=== PATIENT | male | born 1965 | race Caucasian/White ===

== ENCOUNTER 2024-06-09 15:46 | Inpatient (IN) | payer OTHER, SELFPAY ==
[2024-06-09] VITALS (8 sets, daily range): BP systolic 118–141; BP diastolic 67–78; BMI 27.4
[2024-06-09 12:56] LABS: % Basophils 0.2 % (0-2); % Eosinophils 0.3 % (0-6); % Immature Granulocytes 0.5 % (0-0.5); % Lymphocytes 7.3 % (20.5-51.1); % Monocytes 14.1 % (1.7-9.3); % Neutrophils 77.6 % (42.2-75.2); Absolute Lymphocytes 0.5 10^3/uL (1.2-3.4); Absolute Monocytes 0.9 10^3/uL (0.1-0.6); Absolute Neutrophils 4.8 10^3/uL (1.4-6.5); Hematocrit 40.5 % (39.0-52.0); Hemoglobin 14.3 g/dL (13.0-18.0); Mean Corp Hgb Conc. 35.3 g/dL (33.0-37.0); Mean Corpuscular Hgb 35.2 pg (27.0-31.0); Mean Corpuscular Volume 99.8 fL (80.0-94.0); Mean Platelet Volume 10.2 fL (7.4-10.4); Nucleated Red Blood Cells % 0 % (-); Platelet Count 158 10^3/uL (130-400); Red Blood Cell Count 4.06 10^6/uL (4.70-6.10); Red Cell Dist. Width 13.1 % (11.5-14.5); White Blood Cell Count 6.2 10^3/uL (4.8-10.8)
[2024-06-09 13:13] LABS: ALT (SGPT) 78 U/L (0-50); AST (SGOT) 44 U/L (17-59); Albumin 3.2 g/dl (3.5-5.0); Alkaline Phosphatase 64 U/L (38-126); Blood Urea Nitrogen 21 mg/dl (9-20); Calcium 8.7 mg/dl (8.4-10.2); Carbon Dioxide 33 mmol/L (22-30); Chloride 105 mmol/L (98-107); Glucose 94 mg/dl (70-99); Potassium 2.9 mmol/L (3.5-5.1); Sodium 142 mmol/L (135-145); Total Bilirubin 0.7 mg/dl (0.2-1.3); eGFR > 60.00
[2024-06-09 13:21] LABS: NT-proBNP 225 pg/ml; Troponin I < 0.012 ng/ml
--- NOTE | 2024-06-09 13:54 | ED.GENMED ---
History of Present Illness
General
Chief Complaint: Breathing Problem
Time Seen by Provider: 06/09/24 12:28
History of Present Illness
History of Present Illness:
59-year-old male presents the emergency department for evaluation of shortness of breath and dyspnea on exertion. He has a history of pleural effusions, most recently has required chest tube placement 1 year ago at [facility]. Upon
reviewing the patient's my charts he was admitted for pneumonia with a large exudative pleural effusion on the right and underwent chest tube placement. He did undergo a left and right heart catheterization during that stay, was noted to have
minimal nonobstructing CAD as well as marginally elevated pulmonary wedge pressures. It was felt that his fluid buildup was not related to CHF however he is on Lasix at this time. Over the past 2 weeks he has had dry cough and increased dyspnea
particular with exertion. Denies chest pain or recent fevers. Had an outpatient x-ray 3 days ago showing pleural effusions and vascular congestion
Past History
Past History
ED Past Medical History: Asthma
Social History
Drug: None
Review of Systems
Review of Systems
Allergies reviewed?: Yes
All Other Systems: ROS reviewed and negative except as documented in HPI and ROS
Phy Exam
Physical Exam
Physical Exam:
GEN: Well appearing, NAD, WDWN
HEENT: Oral mucosa moist, no scleral icterus
Cardiac: Regular rate, Regular rhythm, no murmurs
Lung: No respiratory distress, no tachypnea, Rhonchi heard throughout all lung infante, no wheezes, good air exchange throughout
MSK: No gross deformity or injuries
Skin: Good color, no pallor or jaundice, no rashes
Neuro: AO x3, moves all extremities freely
Psych: Calm, cooperative
Scores
Heart Failure Risk
Heart Failure Risk Score: Not Applicable
Course
Orders/Labs/Results
Orders:
Orders
06/09/24 11:55
ECG [Electrocardiogram (*1)] Urgent
Reason for Study: Shortness of Breath
06/09/24 11:56
EKG- Treatment ONCE
06/09/24 12:42
CR Chest - 2 Views Urgent
Comment:
Reason For Exam: SOB
06/09/24 12:49
Complete Blood Count/With Diff Urgent
Comprehensive Metabolic Panel Urgent
Magnesium Urgent
Comment: ADD ON
NT-proBNP Urgent
Troponin I Urgent
06/09/24 13:53
Potassium Chloride [KCl] 40 meq PO NOW STA
06/09/24 14:05
Potassium Chloride [KCl] 20 meq 0.9% Sodium Chloride 150 ml [Nss] 150 ml IV NOW
06/09/24 14:16
Add On- LAB Urgent
Tests Added?: magnesium
06/09/24 15:04
STOOL [C difficile Antigen & Toxins] Routine
JASWANT Source: Feces/Stool
Specimen Description:
Stool Culture Routine
JASWANT Source: Feces/Stool
Specimen Description:
Stool For WBC Routine
JASWANT Source: Feces/Stool
Specimen Description:
06/09/24 15:06
HIV 4th Generation [HIV Combo] Routine
Urine Drug Abuse Screen Routine
Sputum Culture [Respiratory Culture/Gram Stain] Routine
JASWANT Source: Sputum
Specimen Description:
Abnormal Lab Results
06/09/24
12:49
RBC 4.06 L 10^6/uL
(4.70-6.10)
MCV 99.8 H fL
(80.0-94.0)
MCH 35.2 H pg
(27.0-31.0)
Absolute Lymphs (auto) 0.5 L 10^3/uL
(1.2-3.4)
Absolute Monos (auto) 0.9 H 10^3/uL
(0.1-0.6)
Neutrophils % 77.6 H %
(42.2-75.2)
Lymphocytes % 7.3 L %
(20.5-51.1)
Monocytes % 14.1 H %
(1.7-9.3)
Potassium 2.9 L mmol/L
(3.5-5.1)
Carbon Dioxide 33 H mmol/L
(22-30)
BUN 21 H mg/dl
(9-20)
Creatinine 0.6 L mg/dL
(0.7-1.3)
ALT 78 H U/L
(0-50)
Total Protein 6.0 L g/dl
(6.3-8.2)
Albumin 3.2 L g/dl
(3.5-5.0)
06/09/24 12:49
06/09/24 12:49
Vital Signs
Initial and Last Documented VS:
Initial Vital Signs
Temp Pulse Resp BP Pulse Ox
98.1 F 90 18 131/72 91
06/09/24 11:51 06/09/24 11:51 06/09/24 11:51 06/09/24 11:51 06/09/24 11:51
Last Documented Vital Signs
Temp Pulse Resp BP Pulse Ox
98.1 F 60 16 127/70 92
06/09/24 11:51 06/09/24 14:00 06/09/24 14:02 06/09/24 14:04 06/09/24 14:00
MDM/Problems Addressed
MDM/Problems Addressed:
Because of the patient's pulmonary edema and pleural effusions is not clear at this time. He did have reasonably normal cardiac workup within the past 12 months performed at [facility]. He has no infectious symptoms to warrant antibiotics at this
time. Feel be prudent to admit the patient for consideration of thoracentesis for symptomatic and diagnostic perspective
*Critical Care Note
Total Time (30-74mins, 75-104mins- exclusive of procedures): Not Applicable
ED Attending Note
-
Portions of this chart may have been created with voice recognition software.� Occasional wrong word or��sound alike� substitutions may have occurred due to the inherent limitations of voice recognition software.
Discharge Plan
Departure
Patient Disposition: Admit
Date of Disposition: 06/09/24
Time of Disposition: 13:56
Admit to: Telemetry
Presentation/result/management discussed w/ accepting MD/DO: Hospitalist
Discharge Problem:
Pleural effusion, Dyspnea on exertion
Prescriptions:
No Action
fluticasone propion-salmeterol 250-50 mcg/dose blister with device
1 inh INHALATION R BID
ascorbic acid (vitamin C) [Vitamin C] 1,000 mg Tablet
2 g PO DAILY
atorvastatin 20 mg Tablet
20 mg PO HS
calcium carbonate [Calcium 600] 600 mg calcium (1,500 mg) Tablet
600 mg PO DAILY
ferrous sulfate 325 mg (65 mg iron) Tablet
650 mg PO DAILY
bismuth subsalicylate [Pepto-Bismol] 262 mg/15 mL Suspension
524 mg PO DAILYPRN PRN (Reason: upset stomach)
ibuprofen 200 mg Tablet
800 mg PO DAILYPRN PRN (Reason: mild pain)
furosemide 20 mg Tablet
40 mg PO DAILY
albuterol sulfate 90 mcg/actuation HFA aerosol inhaler
1 puff INHALATION R DAILYPRN PRN (Reason: sob)
cholecalciferol (vitamin D3) 50 mcg (2,000 unit) Tablet
50 mcg PO DAILY
omega 3-axh-kmq-fish oil [Fish Oil] 1,200 (144-216) mg Capsule
1 cap PO DAILY
Referrals:
Carrie Mace DO [Family Provider] -
Interventions
Interventions:
*Risk Screen - Suicide Last Done: 06/09/24 11:51
*General Assessment Last Done: 06/09/24 11:51
*Neglect/Abuse Screening Last Done: 06/09/24 11:51
*ED- Fall Risk Assessment Last Done: 06/09/24 12:50
*ED COVID-19 Vaccine History Last Done: 06/09/24 12:50
ED- Cardiac Assessment Last Done: 06/09/24 12:50
ED- Pulmonary Assessment Last Done: 06/09/24 12:50
Discharge Date and Time
Print Language: SWAZI
[2024-06-09] MEDS: KCL 40 MEQ PO ×2 (14:01→21:16)
--- NOTE | 2024-06-09 14:12 | HPS.HSE ---
Addendum entered and electronically signed by JORGE A Walker 06/09/24 21:11:
Hypokalemia update at 1999
-Potassium 3.2
-Will give additional 40 mEq KCl p.o. now
-Follow BMP in a.m.
Original Note:
Family Physician
-
Family Physician: Carrie Mace
Chief Complaint
-
Shortness of breath, CEE, nonproductive cough
History of Present Illness
59-year-old male complaining of shortness of breath with dyspnea on exertion and dry cough.. He has history of recurrent pleural effusions with 1 year ago requiring chest tube placement at [facility]. ER reports he was admitted at
[facility] for pneumonia with large exudative pleural effusion on the right and underwent chest tube placement he had a left and right heart cath during his stay was noted to have minimal nonobstructing CAD as well as elevated pulmonary wedge
pressures. At that time it was felt not to be related to CHF however he is on current Lasix. Had outpatient chest x-ray 3 days ago showing pleural effusions and vascular congestion.
He denies fever, chills, headache, sore throat, chest pain, palpitations, abdominal pain, nausea, vomiting, diarrhea, urinary symptoms. He has past medical history of recurrent pleural effusions, recurrent pneumonia, chronic bronchitis, insomnia,
questionable CHF, HTN, HLD, prior crack cocaine smoker .
Medical History
Past Medical History
Past Medical History: Reports Other
Additional Past Medical History:
recurrent pleural effusions unclear�multiple thoracentesis starting 11/12/2018, 10/2019, 06/2023 [facility]
recurrent pneumonia
chronic bronchitis
insomnia
questionable CHF
HTN
HLD
prior crack cocaine smoker ., Sexual history partners that use IVDA last 04/08/2016 IVDA crystal meth hesitant to ask about homosexuality
Past Surgical History: Reports Other
Additional Past Surgical History:
multiple thoracentesis starting 11/12/2018, 10/2019, 06/2023 [facility] Gomez
Bronchoscopy October 2019 Amrit Heller
Cardiac cath June 2023 Amrit Gomez nonobstructive CAD
Social History
Tobacco: Non-smoker
Alcohol: None
Drug: Former User (Crack cocaine smoker )
Personal: Single
Living: Alone
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
Family History
Family History: Other (Mother history of HIV/AIDS/liver failure age 51, father AR age 72 disease, 3 brothers 1 with DM 2)
Allergies / Home Medications
Allergies reflects when Allergies were last updated in [employer].
Home Medications with original date entered in [employer]
Allergy/Medication List:
Allergies
Allergy/AdvReac Type Severity Reaction Status Date / Time
No Known Allergies Allergy Verified 06/09/24 11:51
Home Medications
albuterol sulfate 90 mcg/actuation aerosol inhaler 1 puff inhalation R DAILYPRN PRN sob 06/09/24
ascorbic acid (vitamin C) 1,000 mg tablet (Vitamin C) 2 g PO DAILY 06/09/24
atorvastatin 20 mg tablet 20 mg PO HS 06/09/24
bismuth subsalicylate 262 mg/15 mL oral suspension (Pepto-Bismol) 524 mg PO DAILYPRN PRN upset stomach 06/09/24
calcium carbonate (Calcium 600) 600 mg PO DAILY 06/09/24
cholecalciferol (vitamin D3) 50 mcg (2,000 unit) tablet 50 mcg PO DAILY 06/09/24
ferrous sulfate 325 mg (65 mg iron) tablet 650 mg PO DAILY 06/09/24
fluticasone 250 mcg-salmeterol 50 mcg/dose blistr powdr for inhalation 1 inh inhalation R BID 06/09/24
furosemide 20 mg tablet 40 mg PO DAILY 06/09/24
ibuprofen 200 mg tablet 800 mg PO DAILYPRN PRN mild pain 06/09/24
omega 3-rwm-eqc-fish oil 1,200 mg (144 mg-216 mg) capsule (Fish Oil) 1 cap PO DAILY 06/09/24
Review of Systems
-
History Source: Patient
A 12 point ROS was completed and negative except as noted: Yes
Constitutional: Denies Fever or Chills
EENT: Denies Sore Throat or Runny Nose
Respiratory: Reports Cough (Yellow in color) and Trouble Breathing (Dyspnea on exertion, wheezing, persistent cough)
Cardiac: Denies Chest Pain, Diaphoresis, Palpitations or Syncope
Abdomen/GI: Reports Diarrhea (Watery black 3-4 times a day since 05/31/2024); Denies Abdominal Pain, Nausea, Vomiting, Constipated, Bloody Stools or Black Stools
: Denies Dysuria, Frequency, Flank Pain, Incontinence, Difficulty Voiding, Urgency, Bleeding or Dark Urine
Musculoskeletal: Reports Edema (Trace bilateral lower legs); Denies Joint Pain
Skin: Denies Itching or Rash
Neurological: Denies Dizzy, Headache or Weakness
Endocrine: Reports No Symptoms
Hematologic/Lymphatic: Reports No Symptoms
Psych: Reports Calm
Physical Exam
Vital Signs
Vital Signs
Temp Pulse Resp BP Pulse Ox
98.1 F 60 16 127/70 92
06/09/24 11:51 06/09/24 14:00 06/09/24 14:02 06/09/24 14:04 06/09/24 14:00
Physical Exam
General: Comfortable and Conversant; No Pain, Fever or Chills
HEENT: NormoCephalic, Anicteric, PERRLA, [place] Conjunctivae and No Ptosis
Respiratory: Rhonchi (Bilateral rhonchi with diffuse expiratory wheezing)
Cardiac: S1/S2 and Regular Rhythm; No Murmur, Rub, Gallop or Peripheral Edema
Breast: Deferred by me
GI: Soft, Non Tender, Non Distended, Normal Bowel Sounds and No Hepatosplenomegaly
Rectal: Deferred by Provider
Genito-urinary: Deferred by me
Musculoskeletal: No Clubbing, No Cyanosis, Edema, Left Lower Extremity (Trace lower legs) and Edema, Right Lower Extremity (Trace lower legs); No Edema, Left Upper Extremity or Edema, Right Upper Extremity
Skin: Warm and Dry; No Rash
Neuro: AO x 3, No Motor Deficits, Nonfocal/grossly intact, Cranial Nerves Intact and No Sensory Deficits; No Slurred Speech, Facial Droop, Tremors or Sedated
Psych: Calm
Laboratory Results
-
06/09/24 12:49
06/09/24 12:49
Laboratory Results
Total Bilirubin 0.7 mg/dl (0.2-1.3) 06/09/24 12:49
AST 44 U/L (17-59) 06/09/24 12:49
ALT 78 U/L (0-50) H 06/09/24 12:49
Alkaline Phosphatase 64 U/L (38-126) 06/09/24 12:49
Troponin I < 0.012 ng/ml 06/09/24 12:49
Data Reviewed
-
Diagnostic Radiology: Report Reviewed by me
Lab Data: Labs Reviewed by me
Impression/Plan
-
Impression/plan:
Admit to telemetry
#Acute hypoxic respiratory insufficiency secondary to recurrent moderate right pleural effusion
Hx recurrent pleural effusions status post thoracentesis 11/12/2018, 11/07/2019, June 2023-unclear etiology
90-92% RA prior O2 sats 98% recent visits
-Oxygen as needed to maintain sat greater than 92%
-Consult IR for thoracentesis with fluid cytology
-Monitor I/O
#Hx former crack cocaine smoker
#History of multiple exposures to partners patient states female although hesitates when I ask about male partners last partner 2016 IVDA crystal meth
Patient consented to HIV testing given history of unclear recurrent right pleural effusion/pneumonia's? Mother history aids age 51
-Check sputum culture
-Check HIV, UDS
-Patient reports was tested for hep C June 2023 was negative
CXR:Interstitial pulmonary edema with moderate right and small left pleural effusions. Bibasilar opacities may reflect edema, atelectasis, and/or pneumonia.
#Acute on chronic bronchitis
-Frequent exacerbations last was March 26 treated with Z-Peter and steroids
-Patient follows with pulmonology Dr. Heller at [facility]
Hx bronchoscopy October 2019
-Will obtain old records from [facility] including cardiology notes and echo plus bronch report
-Decadron 4 mg IV every 12 hours
-DuoNebs scheduled and as needed
-Monitor pulse ox, 2 L nasal cannula as needed
#Acute hypokalemia secondary to diarrheal losses/diuretics
K2.9
40 KCl p.o. given in ER followed by Zev echeverria 40
-Repeat BMP 8 PM
#Watery diarrhea unclear etiology
-No reported abdominal pain but diarrhea did start with fever on 05/31/2024-9 days ago watery black in color however takes iron and Pepto-Bismol
No recent travel, raw foods, last antibiotic March 26, 2024
-Check C. difficile, stool WBC, stool culture
-Contact precautions until stool studies back
#Iron deficiency
Continue ferrous sulfate 660 mg p.o. daily
-Hgb 14.3, MCV 99.8
#Insomnia hx
#History of snoring/reported episodes stopping breathing per prior partner
-Encourage patient to get outpatient sleep study with his financial cost analyst for sleep apnea
#HLD
Check lipid profile
Continue fish oil, atorvastatin 20 mg at bedtime
DVT prophylaxis
Subcu Lovenox
Full code
[2024-06-09] MEDS: KCL 160 MEQ IV (14:13)
--- NOTE | 2024-06-09 14:24 | PHANOTE ---
06/09/24 med rec tech: patient says that he has used both of his inhalers multiple times today, 'too many to count'.
--- NOTE | 2024-06-09 15:56 | W.PN.UPDATE ---
Update Note
Progress Note Update
This is an addendum to H&P written by Pam Daly on 06/09/2024.
Patient seen and examined independently with TAIL RIPPER.
59-year-old male past medical history of chronic bronchitis, iron deficiency, right-sided thoracentesis in 2019 followed by bronchoscopy, exudative pleural effusion associated pneumonia status post chest tube 1 year ago at [facility],
nonobstructive CAD, MRSA cellulitis, asthma, presenting with shortness of breath with exertion and productive cough for 1 week.� Chest x-ray 3 days ago showed pleural effusion/vascular congestion.
2019 he had thoracentesis followed by bronchoscopy.�
1 year ago had pleural effusion associated with pneumonia status post chest tube.� He underwent left and right heart catheterization showing minimally obstructive CAD and marginally elevated pulmonary wedge pressures.� He was told that he does not
have heart congestive heart failure.
Treated for bronchitis March 26 with steroids and Z-Peter.� On 05/31 fever and bodyaches and watery black diarrhea.� Continues to have watery diarrhea 3 times a day.
History of smoking crack cocaine. No IV drug use. Had female partner that used IV drugs.
Bilteral ronchi on examination.�
Labs show potassium 2.9.� Cardiac BNP of 225.
Chest x-ray shows interstitial pulm edema with moderate right and small left pleural effusions.
Patient with dyspnea secondary to Acute bronchitis as well as moderate right pleural effusion suggestive of CHF exacerbation although BNP unremarkable.� DuoNebs, dexamethasone.� Check sputum culture.� IR consulted for thoracentesis and fluid
studies.� Pulmonary consulted.
Patient with ongoing diarrhea.� Check stool studies, C. difficile
Also hypokalemia secondary to Lasix/diarrhea.� Check magnesium.� Replete potassium.
Check UDS. Patient consents to checking HIV.�
Get records from [facility].�
[2024-06-09] MEDS: DECADRON 4 MG IV (16:07)
--- NOTE | 2024-06-09 16:30 | PTCARENOTE ---
pt admitted to 429- from the ED. pt ambulated from stretcher to bed independently. AAOX3. pt placed on tele monitor. NSR on telemetry heart rate in 70s. pulses palpable. +1 pitting edema in ankles noted. pt on room air, sat 94%. lung sounds with
mild inspiratory/expiratory wheezes, crackles in bases. CEE. breathing unlabored at rest. pt reports diarrhea- none since admission, pt made aware of need for stool and urine sample. pt oriented to room and unit. brother at bedside. pt updated on
plan of care.
[2024-06-09] MEDS: DUONEB INH (16:42)
[2024-06-09] MEDS: LOVENOX 40 MG SC (17:11)
--- NOTE | 2024-06-09 17:31 | CON.PUL ---
Consultation
Consultation Request
Date/Time Consultation Requested: 06/09/2024
Date/Time Consultation Performed: 06/09/2024
Requesting Provider: Pam Daly
Performing Provider: Olayinka [place]
Reason for Consultation: SHortness of breath
Medical History
-
Chief Complaint: Shortness of breath
History of Present Illness:
59-year-old male presents to the hospital for worsening shortness of breath with cough, episodic wheezing with clear to davis expectoration for about 1 week. No fever, chills or reported sick contacts.
Patient reports that he has history of recurrent pleural effusions, first diagnosed in 2018 which required drainage. He did well for a year and required anohter thoracentesis un 2019. Then he did well until 2023 when he was admitted to the hospital
and had right sided chest tube placed with hydro-pneumothorax. He has had Bronchoscopy also in the past but results not available for my review. Patient reports multiple episodes of respiratory infections, which he describes as bronchitis. Per
patient, he has had numerous ECHOs including RHC/LHC and was not felt to have CHF. He takes lasix at home for pedal edema however.
Work up in ED showed R>L pleural effusions and Pulmonary consult was requested for further input.
Past Medical History: Reports Other
recurrent pleural effusions unclear�multiple thoracentesis starting 11/12/2018, 10/2019, 06/2023 [facility]
recurrent pneumonia
chronic bronchitis
insomnia
questionable CHF
HTN
HLD, No h/o childhood asthma
prior crack cocaine smoker ., Sexual history partners that use IVDA last 04/08/2016 IVDA crystal meth hesitant to ask about homosexuality
Past Surgical History: Reports Other
Additional Past Surgical History:
multiple thoracentesis starting 11/12/2018, 10/2019, 06/2023 Am[facility] Gomez
Bronchoscopy October 2019 Amrit Heller
Cardiac cath June 2023 Amrit Gomez nonobstructive CAD
Social History
Tobacco: No reported h/o smoking cigarettes or cigars
Alcohol: None
Drug: Former User (Crack cocaine smoker [id number])
Personal: Single
Living: Alone
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
No Asbestosis exposure. No exposure to birds. Has had Cats/Dogs as pets
Allergies / Home Medications
Allergies
Allergy/AdvReac Type Severity Reaction Status Date / Time
No Known Allergies Allergy Verified 06/09/24 11:51
Home Medications
�Medication �Instructions �Recorded �Confirmed �Last Taken �Type
albuterol sulfate 90 mcg/actuation 1 puff inhalation R DAILYPRN PRN 06/09/24 06/09/24 06/09/24 History
aerosol inhaler sob
ascorbic acid (vitamin C) 1,000 mg 2 g PO DAILY 06/09/24 06/09/24 06/08/24 History
tablet (Vitamin C)
atorvastatin 20 mg tablet 20 mg PO HS 06/09/24 06/09/24 Unknown History
bismuth subsalicylate 262 mg/15 mL 524 mg PO DAILYPRN PRN upset 06/09/24 06/09/24 06/09/24 History
oral suspension (Pepto-Bismol) stomach
calcium carbonate (Calcium 600) 600 mg PO DAILY 06/09/24 06/09/24 06/08/24 History
cholecalciferol (vitamin D3) 50 50 mcg PO DAILY 06/09/24 06/09/24 06/08/24 History
mcg (2,000 unit) tablet
ferrous sulfate 325 mg (65 mg 650 mg PO DAILY 06/09/24 06/09/24 06/08/24 History
iron) tablet
fluticasone 250 mcg-salmeterol 50 1 inh inhalation R BID 06/09/24 06/09/24 06/09/24 History
mcg/dose blistr powdr for
inhalation
furosemide 20 mg tablet 40 mg PO DAILY 06/09/24 06/09/24 06/08/24 History
ibuprofen 200 mg tablet 800 mg PO DAILYPRN PRN mild pain 06/09/24 06/09/24 06/09/24 History
omega 3-lbf-lox-fish oil 1,200 mg 1 cap PO DAILY 06/09/24 06/09/24 06/08/24 History
(144 mg-216 mg) capsule (Fish Oil)
Review of Systems
-
Respiratory: Cough, Trouble Breathing and Other (Wheezing, no fever or chills )
Vitals / Labs / Diagnostic Testing
Vital Signs
Temp Pulse Resp BP Pulse Ox
98.1 F 60 15 139/71 94
06/09/24 16:54 06/09/24 16:54 06/09/24 16:54 06/09/24 16:54 06/09/24 16:54
Diagnostic Testing:
Physical Exam
-
HEENT: Normocephalic
Cardiovascular: S1/S2 and Regular Rhythm
Respiratory: Wheeze (Mild end expiratory wheezing bilaterally ) and Other (Decreased air entry on the right posterior base)
GI: Soft and Non Distended
Neurology: Awake and Alert
Skin: Warm
General: Comfortable
Assessment
-
#1. Acute exacerbation of COPD. Known h/o obstructive airway disease (PFT 2019, severe obstructive disease)
-Duoneb qid, Pulmicort BID. Hold Advair while on Nebz
-PRN Albuterol, continue IV Steroids
-Azithromycin for 3 days
#2. R>L Pleural effusions, chronic, recurrent (Exudative in the past). S/p (At least thrice) thoracentesis since 2018, with chest tube placement in 2023 with reported hydro-pneumothorax as per limited records I could access on patient's phone.
-Await records from [facility], and patient's Panel Saw Operator (He has had extensive work up including PFTs, Thoracentesis, Chest tube placement and Bronchoscopy)
-With h/o hydropneumothorax after drainage in the past, ?trapped lung with [id number]
-Unclear if lung ever fully expanded after thoracentesis vs chronically trapped lung after a remote infection
-IR guided thoracentesis already ordered, await fluid studies. At risk of [id number], ideally will need Manometry guided thoracentesis.
-CT chest to evaluate for any pleural thickening, loculations etc.
-Further recommendations after review of old records and work up done in the past
-Patient reports RHC/LHC in the past with numerous ECHOs in the past not suggestive of CHF. Await records
Other medical diagnoses:
-Diarrhea with hypokalemia
-HLD
-Prior h/o smoking cocaine ([id number])
Pulmonary service will follow
Time spent reviewing limited records and discussing with the patient: 65 min
[2024-06-09 18:10] LABS: Glucose 97 mg/dl (70-99); LDH 184 U/L (120-246)
[2024-06-09] MEDS: ZITHROMAX 500 MG PO (18:12)
[2024-06-09 18:50] LABS: HIV Combo Negative (Negative)
[2024-06-09] MEDS: DUONEB 3 ML INH (20:33)
[2024-06-09] MEDS: PULMICORT 0.5 MG INH (20:33)
[2024-06-09 20:34] LABS: Blood Urea Nitrogen 22 mg/dl (9-20); Calcium 8.6 mg/dl (8.4-10.2); Carbon Dioxide 29 mmol/L (22-30); Chloride 104 mmol/L (98-107); Estimated Creatinine Clearance > 125 ml/min; Glucose 203 mg/dl (70-99); Potassium 3.2 mmol/L (3.5-5.1); Sodium 139 mmol/L (135-145); eGFR > 60.00
[2024-06-09] MEDS: LIPITOR 20 MG PO (21:06)
[2024-06-10] VITALS (8 sets, daily range): BP systolic 60–139; BP diastolic 58–90; BMI 27.4
[2024-06-10] MEDS: DECADRON 4 MG IV ×2 (03:09→16:56)
[2024-06-10] MEDS: DUONEB 3 ML INH ×4 (08:17→20:31)
[2024-06-10] MEDS: PULMICORT 0.5 MG INH ×2 (08:17→20:31)
[2024-06-10 08:34] LABS: % Immature Granulocytes 0.4 % (0-0.5); % Monocytes 3.8 % (1.7-9.3); % Neutrophils 89.8 % (42.2-75.2); Absolute Lymphocytes 0.3 10^3/uL (1.2-3.4); Absolute Monocytes 0.2 10^3/uL (0.1-0.6); Absolute Neutrophils 4.5 10^3/uL (1.4-6.5); Hematocrit 41.4 % (39.0-52.0); Hemoglobin 14.7 g/dL (13.0-18.0); Mean Corp Hgb Conc. 35.5 g/dL (33.0-37.0); Mean Corpuscular Hgb 35.4 pg (27.0-31.0); Mean Corpuscular Volume 99.8 fL (80.0-94.0); Mean Platelet Volume 10.7 fL (7.4-10.4); Nucleated Red Blood Cells % 0 % (-); Platelet Count 185 10^3/uL (130-400); Red Blood Cell Count 4.15 10^6/uL (4.70-6.10)
[2024-06-10 09:14] LABS: ALT (SGPT) 63 U/L (0-50); AST (SGOT) 33 U/L (17-59); Albumin 3.5 g/dl (3.5-5.0); Alkaline Phosphatase 64 U/L (38-126); Blood Urea Nitrogen 21 mg/dl (9-20); Calcium 8.7 mg/dl (8.4-10.2); Carbon Dioxide 27 mmol/L (22-30); Estimated Creatinine Clearance > 125 ml/min; Glucose 126 mg/dl (70-99); HDL Cholesterol 40 mg/dl; LDL Cholesterol, Calculated 79 mg/dl; Potassium 3.5 mmol/L (3.5-5.1); Sodium 141 mmol/L (135-145); Total Bilirubin 0.9 mg/dl (0.2-1.3); Total Cholesterol 133 mg/dl (50-199); Total Protein 6.2 g/dl (6.3-8.2); Triglyceride 72 mg/dl (10-149); Very Low Density Lipoprotein 14 mg/dl (0-30); eGFR > 60.00
[2024-06-10] MEDS: VITAMIN D3 (cholecalciferol) 50 MCG PO (09:19)
[2024-06-10] MEDS: ZITHROMAX 500 MG PO (09:19)
[2024-06-10] MEDS: LASIX 40 MG PO (09:19)
[2024-06-10] MEDS: VITAMIN C 2000 MG PO (09:19)
[2024-06-10] MEDS: OSCAL CAL 500 500 MG PO (09:19)
[2024-06-10] MEDS: FEOSOL 650 MG PO (09:19)
[2024-06-10 09:20] LABS: Chloride 107 mmol/L (98-107)
--- NOTE | 2024-06-10 10:04 | CM ---
press manager reviewed patient's chart and met with patient and patient states he lives with his brother and sister in a 2 story home with no steps to enter, patient is independent with adl's and ambulation, no dme, Home with family when stable.
PCP: Carrie Mace
Pharmacy: [facility]
Plan; Home when stable.
--- NOTE | 2024-06-10 11:39 | W.PN.HOSP.TC ---
Today's Communication/Plan
-
Thoracentesis-pending
IV steroids
Pulm eval
Assessment / Plan
Assessment / Plan
#Acute hypoxic respiratory insufficiency secondary to recurrent Chronic moderate right pleural effusion exudative in past
Hx recurrent pleural effusions status post thoracentesis 11/12/2018, 11/07/2019, June 2023-unclear etiology
90-92% RA prior O2 sats 98% recent visits
-Oxygen as needed to maintain sat greater than 92%
-Consult IR for thoracentesis with fluid cytology
-Monitor I/O
-Pulm following.
#Hx former crack cocaine smoker
-Check sputum culture
-HIV checked on admission-negative.
-Patient reports was tested for hep C June 2023 was negative
#Acute on chronic bronchitis
-Frequent exacerbations last was March 26 treated with Z-Peter and steroids
-Patient follows with pulmonology Dr. Heller at [facility]
Hx bronchoscopy October 2019
-Will obtain old records from [facility] including cardiology notes and echo plus bronch report
-Decadron 4 mg IV every 12 hours
-DuoNebs scheduled and as needed
-Monitor pulse ox, 2 L nasal cannula as needed
#Acute hypokalemia secondary to diarrheal losses/diuretics
replete/monitor prn
#Watery diarrhea unclear etiology ?viral gastroenteritis
-No reported abdominal pain but diarrhea did start with fever on 05/31/2024-9 days ago watery black in color however takes iron and Pepto-Bismol
No recent travel, raw foods, last antibiotic March 26, 2024
-Check C. difficile, stool WBC, stool culture-DC stools studies if no further loose bm.
-Contact precautions until stool studies back
#Iron deficiency
Continue ferrous sulfate 660 mg p.o. daily
-Hgb 14.3, MCV 99.8
#Insomnia hx
#History of snoring/reported episodes stopping breathing per prior partner
-Encourage patient to get outpatient sleep study with his sap consultant for sleep apnea
#HLD
Continue fish oil, atorvastatin 20 mg at bedtime
DVT prophylaxis
Subcu Lovenox
Full code
Anticipated Discharge: > 48 hours
Subjective/Interval History
-
Date of Service: June 10, 2024
states remains with cough
Objective Data
-
Labs:
Laboratory Results
06/10/24
07:54
WBC 5.0
Hgb 14.7
Hct 41.4
Plt Count 185
Sodium 141
Potassium 3.5
Chloride 107
Carbon Dioxide 27
BUN 21 H
Creatinine 0.5 L
Glucose 126 H
Calcium 8.7
Total Bilirubin 0.9
AST 33
ALT 63 H
Alkaline Phosphatase 64
Vital Signs:
Vital Signs
Temp Pulse Resp BP Pulse Ox
98 F 81 17 129/73 93
06/10/24 11:32 06/10/24 11:32 06/10/24 11:32 06/10/24 11:32 06/10/24 11:32
I&O
06/09/24 06/10/24 06/11/24
06:59 06:59 06:59
Intake Total 480 / 480 180 / 180
Balance 480 / 480 180 / 180
Physical Exam
-
General: Well Developed and No Apparent Distress
HEENT: Normocephalic, Atraumatic and Moist Mucous Membranes
Respiratory: Crackles (R>>L) and Decreased Breath Sounds
Cardiac: Regular Rhythm and S1/S2; Negative Murmur, Rub or Gallop
GI: Soft, Nontender, Nondistended and Normal Bowel Sounds; Negative Organomegaly
Rectal: Deferred by Provider
Musculoskeletal: No Clubbing, No Cyanosis and No Edema
Skin: Negative Rash
Neuro: Nonfocal/Grossly Intact
--- NOTE | 2024-06-10 12:40 | W.PN.PUL3 ---
Today's Communication / Plan
-
Continue therapy for exacerbation of COPD
Nebulizers
IV corticosteroids
Wait for thoracentesis
Hopefully can obtain records
Assessment
-
#1. Acute exacerbation of COPD. Known h/o obstructive airway disease (PFT 2019, severe obstructive disease)
-Duoneb qid, Pulmicort BID. Hold Advair while on Nebs
Continue IV corticosteroids-dexamethasone, Without change.
-PRN Albuterol, continue IV Steroids
-Azithromycin for 3 days
-CT scan findings with suggestion of bronchiolitis-chronicity uncertain. Sputum culture pending. Certainly afebrile without leukocytosis. Suspect chronic findings. DANY may be a possibility.
-He does follow-up with pulmonary and this could be follow-up in the outpatient setting with his primary pulmonary doctor.
#2. R>L Pleural effusions, chronic, recurrent (Exudative in the past). S/p (At least thrice) thoracentesis since 2018, with chest tube placement in 2023 with reported hydro-pneumothorax as per limited records I could access on patient's phone.
-Await records from [facility], and patient's Senior Statistician (He has had extensive work up including PFTs, Thoracentesis, Chest tube placement and Bronchoscopy)
-With h/o hydropneumothorax after drainage in the past, ?trapped lung with [id number]
-Unclear if lung ever fully expanded after thoracentesis vs chronically trapped lung after a remote infection
-IR guided thoracentesis already ordered, await fluid studies. At risk of [id number], ideally will need Manometry guided thoracentesis.
-Will wait for results. Unclear if he will have a pocket for drainage.
-CT chest noted: Chronic appearing bilateral pleural effusions right greater than left. Pleural thickening suggestive of chronicity-suspect patient will have pneumothorax ex vacuo after thoracentesis.
-Further recommendations after review of old records and work up done in the past-suspect this will need to be followed in the outpatient setting.
-Patient reports RHC/LHC in the past with numerous ECHOs in the past not suggestive of CHF. Await records
-
Abnormal CT chest: Bibasilar infiltrates chronicity unclear-suspect chronic atelectasis. No prior to compare in our system.
Currently on room air.
There is bronchiectasis, there is bronchiolitis.
Bronchiolitis may be seen in patients with DANY.
Currently, afebrile without leukocytosis.
This will need to be followed in the outpatient setting.
Other medical diagnoses:
-Diarrhea with hypokalemia
-HLD
-Prior h/o smoking cocaine ([id number])
Pulmonary service will follow
Time spent reviewing limited records and discussing with the patient: 65 min
Subjective Data
-
Date of Service:
Date of Service: June 10, 2024
Chief Complaint: Pulmonary Follow Up (Acute COPD exacerbation.)
Objective Data
Data Reviewed
Vital Signs / I&O / Oxygen:
Vital Signs
Temp Pulse Resp BP Pulse Ox
98 F 97 18 129/73 93
06/10/24 11:32 06/10/24 12:08 06/10/24 12:08 06/10/24 11:32 06/10/24 12:08
Intake and Output
06/09/24 06/10/24 06/11/24
06:59 06:59 06:59
Intake Total 480 / 480 180 / 180
Balance 480 / 480 180 / 180
SaO2 93
Physical Exam
General: Respiratory Distress and Comfortable
HEENT: Normocephalic
Cardiovascular: S1-S2
Respiratory: Clear and Non-Labored Respirations
GI: Soft and Non Distended
Neurology: Awake, Alert, AO x 3 and No Motor Deficits
Skin: Warm
Labs/Micro/Reports
Lab Data
06/10/24 07:54
06/10/24 07:54
[2024-06-10 13:20] LABS: Amphetamines Negative (Negative); Barbiturates Negative (Negative); Benzodiazepines Negative (Negative); Buprenorphine Negative (Negative); Cocaine Negative (Negative); Marijuana Negative (Negative); Methadone Negative (Negative); Methamphetamines Negative (Negative); Opiates Negative (Negative); Phencyclidine Negative (Negative); Tricyclic Antidepressants Negative (Negative)
[2024-06-10 14:10] LABS: Body Fluid pH 7.27
[2024-06-10 14:15] LABS: Body Fluid WBC 3475 /CUMM
[2024-06-10 14:16] LABS: Body Fluid Second Tech ASW
[2024-06-10 14:29] LABS: Body Fluid Amylase 33 U/L; Body Fluid Glucose 104 mg/dl; Body Fluid LDH 257 U/L; Body Fluid Protein 3.3 g/dl; Body Fluid Triglycerides < 30 mg/dl
[2024-06-10] MEDS: LOVENOX 40 MG SC (16:55)
[2024-06-10] MEDS: LIPITOR 20 MG PO (21:24)
[2024-06-11 03:26] VITALS: BP 136/76
[2024-06-11] MEDS: DECADRON 4 MG IV (03:40)
[2024-06-11 06:00] VITALS: BMI 27.3
[2024-06-11 07:18] VITALS: BP 136/76
[2024-06-11] MEDS: PULMICORT 0.5 MG INH (07:23)
[2024-06-11] MEDS: DUONEB 3 ML INH ×2 (07:23→11:11)
[2024-06-11 08:55] LABS: ALT (SGPT) 50 U/L (0-50); AST (SGOT) 27 U/L (17-59); Albumin 3.2 g/dl (3.5-5.0); Alkaline Phosphatase 63 U/L (38-126); Blood Urea Nitrogen 23 mg/dl (9-20); Carbon Dioxide 28 mmol/L (22-30); Chloride 109 mmol/L (98-107); Estimated Creatinine Clearance > 125 ml/min; Glucose 129 mg/dl (70-99); Potassium 3.9 mmol/L (3.5-5.1); Sodium 144 mmol/L (135-145); Total Bilirubin 0.7 mg/dl (0.2-1.3); eGFR > 60.00
[2024-06-11] MEDS: ZITHROMAX 500 MG PO (09:07)
[2024-06-11] MEDS: FEOSOL 650 MG PO (09:08)
[2024-06-11] MEDS: VITAMIN C 2000 MG PO (09:08)
[2024-06-11 09:09] LABS: % Eosinophils 0.1 % (0-6); % Immature Granulocytes 0.4 % (0-0.5); % Lymphocytes 6.4 % (20.5-51.1); % Monocytes 5.2 % (1.7-9.3); % Neutrophils 87.9 % (42.2-75.2); Absolute Lymphocytes 0.5 10^3/uL (1.2-3.4); Absolute Monocytes 0.4 10^3/uL (0.1-0.6); Hematocrit 40.6 % (39.0-52.0); Hemoglobin 14.4 g/dL (13.0-18.0); Mean Corp Hgb Conc. 35.5 g/dL (33.0-37.0); Mean Corpuscular Hgb 35.4 pg (27.0-31.0); Mean Corpuscular Volume 99.8 fL (80.0-94.0); Nucleated Red Blood Cells % 0 % (-); Platelet Count 234 10^3/uL (130-400); Red Blood Cell Count 4.07 10^6/uL (4.70-6.10); Red Cell Dist. Width 13.1 % (11.5-14.5); White Blood Cell Count 7.9 10^3/uL (4.8-10.8)
[2024-06-11] MEDS: OSCAL CAL 500 500 MG PO (09:09)
[2024-06-11] MEDS: VITAMIN D3 (cholecalciferol) 50 MCG PO (09:09)
[2024-06-11] MEDS: LASIX 40 MG PO (09:09)
[2024-06-11 11:40] VITALS: BP 133/74
--- NOTE | 2024-06-11 11:51 | W.PN.HOSP.TC ---
Addendum entered and electronically signed by Otoniel Naranjo MD 06/11/24 13:24:
Discussed with pulmonary. Patient can be discharged home with outpatient follow-up with primary doctor/rail car driver for cytology and culture results
Plan patient CT chest finding seems to be chronic. Patient with history of drug abuse in the past and was explained similar to her prior CAT scan findings.
Discussed with patient was agreeable and amenable to discharge planning home.
Discussed with patient to obtain CT chest prior to discharge and follow-up with primary rail car driver for comparison and further management.
Patient was offered VATS in the past. Recommended to follow-up with her primary rail car driver at [place] to further discuss to prevent recurrence of pleural effusion.
More than 30 minutes spent in discharge including
Final examination of the patient
Summarizing hospital stay
Instructions for continuing care to all relevant caregivers
Preparation of discharge records, prescriptions, and referral forms
Total time spent (in minutes): 55
Original Note:
Today's Communication/Plan
-
IV steroids
await for fluid culture, cytology
OP f/u for fungal culture
pulm recs
Assessment / Plan
Assessment / Plan
#Acute hypoxic respiratory insufficiency secondary to recurrent Chronic moderate right pleural effusion exudative in past
Hx recurrent pleural effusions status post thoracentesis 11/12/2018, 11/07/2019, June 2023-unclear etiology
90-92% RA prior O2 sats 98% recent visits
-Oxygen as needed to maintain sat greater than 92%
-s/p thoracentesis with Exudative effusion. 550 cc of grossly bloody pleural fluid drained.
-await for fluid culture. cytology pending too.
-CT chest did show Bilateral thickened peripheral pleural rinds, most likely chronic inflammatory rinds. Malignant pleural effusion is not excluded. Multiple small nodular densities throughout both lungs, slightly larger in the right upper lobe.
-Monitor I/O
-Pulm following.
#Hx former crack cocaine smoker
-Check sputum culture
-HIV checked on admission-negative.
-Patient reports was tested for hep C June 2023 was negative
#Acute copd exacerbation
-Frequent exacerbations last was March 26 treated with Z-Peter and steroids
-Patient follows with pulmonology Dr. Heller at [facility]
Hx bronchoscopy October 2019
-Will obtain old records from [facility] including cardiology notes and echo plus bronch report
-Decadron 4 mg IV every 12 hours
-DuoNebs scheduled and as needed
-Monitor pulse ox, 2 L nasal cannula as needed
#Acute hypokalemia secondary to diarrheal losses/diuretics
replete/monitor prn
#Watery diarrhea unclear etiology ?viral gastroenteritis
-No reported abdominal pain but diarrhea did start with fever on 05/31/2024-9 days ago watery black in color however takes iron and Pepto-Bismol
No recent travel, raw foods, last antibiotic March 26, 2024
-DC further stools studies as no further loose stools
#Iron deficiency
Continue ferrous sulfate 660 mg p.o. daily
-Hgb stable
#Insomnia hx
#History of snoring/reported episodes stopping breathing per prior partner
-Encourage patient to get outpatient sleep study with his rail car driver for sleep apnea
#HLD
Continue fish oil, atorvastatin 20 mg at bedtime
DVT prophylaxis
Subcu Lovenox
Full code
Anticipated Discharge: 24 - 48 hours
Subjective/Interval History
-
Date of Service: June 11, 2024
states of mild wheezing
Objective Data
-
Labs:
Laboratory Results
06/11/24
07:51
WBC 7.9
Hgb 14.4
Hct 40.6
Plt Count 234 D
Sodium 144
Potassium 3.9
Chloride 109 H
Carbon Dioxide 28
BUN 23 H
Creatinine 0.6 L
Glucose 129 H
Calcium 9.0
Total Bilirubin 0.7
AST 27
ALT 50
Alkaline Phosphatase 63
Vital Signs:
Vital Signs
Temp Pulse Resp BP Pulse Ox
98.6 F 82 20 133/74 94
06/11/24 11:40 06/11/24 11:40 06/11/24 11:40 06/11/24 11:40 06/11/24 11:40
I&O
06/10/24 06/11/24 06/12/24
06:59 06:59 06:59
Intake Total 480 / 480 1050 / 1050
Balance 480 / 480 1050 / 1050
Physical Exam
-
General: Well Developed and No Apparent Distress
HEENT: Normocephalic, Atraumatic and Moist Mucous Membranes
Respiratory: Crackles (bibasilar ) and Decreased Breath Sounds
Cardiac: Regular Rhythm and S1/S2; Negative Murmur, Rub or Gallop
GI: Soft, Nontender, Nondistended and Normal Bowel Sounds; Negative Organomegaly
Rectal: Deferred by Provider
Musculoskeletal: No Clubbing, No Cyanosis and No Edema
Skin: Negative Rash
Neuro: Awake, Alert, Oriented, AO x 3, No Motor Deficits and Nonfocal/Grossly Intact
Psych: Calm
--- NOTE | 2024-06-11 11:58 | CM ---
Chart reviewed and case finisher will follow with patient progress, patient is independent with adl's and ambulation, no dme.
Plan; Home when stable.
--- NOTE | 2024-06-11 12:43 | W.PN.PUL3 ---
Today's Communication / Plan
-
Okay for discharge from my perspective
Follow-up with his pulmonary doctor
Prednisone taper
Restart Advair
Advised to return to the hospital with any change in symptoms.
Assessment
-
#1. Acute exacerbation of COPD. Known h/o obstructive airway disease (PFT 2019, severe obstructive disease)
Patient is a never smoker-did have exposure to crack cocaine up to 15 years ago. Likely explains pulmonary findings.
-Duoneb qid, Pulmicort BID. While in the hospital
Restart Advair upon discharge.
Transition to prednisone 40 mg and decrease by 10 mg every 48 hours to off.
-PRN Albuterol
-Az complete 3 days of azithromycin course.
-CT scan findings with suggestion of bronchiolitis-chronicity uncertain. Sputum culture pending. Certainly afebrile without leukocytosis. Suspect chronic findings. DANY may be a possibility.
-He does follow-up with pulmonary and this could be follow-up in the outpatient setting with his primary pulmonary doctor- Reviewed from his phone CT report from 2019 and had similar findings.
I have asked him to get the CD from images here and bring to his pulmonary doctor.
#2. R>L Pleural effusions, chronic, recurrent (Exudative in the past). S/p (At least thrice) thoracentesis since 2018, with chest tube placement in 2023 with reported hydro-pneumothorax as per limited records I could access on patient's phone.
-Await records from [facility], and patient's Medical Sales Specialist (He has had extensive work up including PFTs, Thoracentesis, Chest tube placement and Bronchoscopy)
-With h/o hydropneumothorax after drainage in the past, ?trapped lung with [id number]-[id number]
-Unclear if lung ever fully expanded after thoracentesis vs chronically trapped lung after a remote infection
-IR guided thoracentesis already ordered, await fluid studies. At risk of Tdeerr-fs-ilids.
-06/11/2024: Exudate. Lymphocytic suggest chronicity. Cultures so far negative. Cytology pending. LDH normal. Amylase normal. Triglycerides normal.
-CT chest noted: Chronic appearing bilateral pleural effusions right greater than left. Pleural thickening suggestive of chronicity-suspect patient will have pneumothorax ex vacuo after thoracentesis.
-Further recommendations after review of old records and work up done in the past-suspect this will need to be followed in the outpatient setting.
-Patient reports RHC/LHC in the past with numerous ECHOs in the past not suggestive of CHF.
He also reports undergoing bronchoscopy.
He was offered surgical intervention at some point-he does not recall details. Advised him to take CD to his primary professor of biblical studies Dr. Heller.
-
Abnormal CT chest: Bibasilar infiltrates chronicity unclear-suspect chronic atelectasis. No prior to compare in our system.
Currently on room air.
There is bronchiectasis, there is bronchiolitis.
Bronchiolitis may be seen in patients with DANY.
Currently, afebrile without leukocytosis.
This will need to be followed in the outpatient setting. As above.
Other medical diagnoses:
-Diarrhea with hypokalemia
-HLD
-Prior h/o smoking cocaine ([id number])-could explain pulmonary findings.
Okay to discharge from my perspective.
Follow-up with primary professor of biblical studies
Sign off
Subjective Data
-
Date of Service:
Date of Service: June 11, 2024
Chief Complaint: Pulmonary Follow Up (Acute COPD exacerbation.)
Subjective:
Patient clinically feels better.
Occasional coughing without phlegm production
Denies shortness of breath
Denies hemoptysis
Denies chest pain.
Review of Systems
Cardiopulmonary: Dyspnea (n), Cough, Sputum Production (n) and Wheezing (n)
Objective Data
Data Reviewed
Vital Signs / I&O / Oxygen:
Vital Signs
Temp Pulse Resp BP Pulse Ox
98.6 F 82 20 133/74 94
06/11/24 11:40 06/11/24 11:40 06/11/24 11:40 06/11/24 11:40 06/11/24 11:40
Intake and Output
06/10/24 06/11/24 06/12/24
06:59 06:59 06:59
Intake Total 480 / 480 1050 / 1050
Balance 480 / 480 1050 / 1050
SaO2 94
Physical Exam
General: Respiratory Distress and Comfortable
HEENT: Normocephalic
Cardiovascular: S1-S2
Respiratory: Clear and Non-Labored Respirations
GI: Soft and Non Distended
Neurology: Awake, Alert, AO x 3 and No Motor Deficits
Skin: Warm
Labs/Micro/Reports
Lab Data
06/11/24 07:51
06/11/24 07:51
Microbiology
06/10/24 13:41 Pleural Fluid Body Fluid Culture - Preliminary
No Growth After 18-24 Hours
06/10/24 13:41 Pleural Fluid Gram Stain - Preliminary
06/09/24 17:40 Nose MRSA Screen - Final
No Methicillin Resistant Staphylococcus aureus isolated.
06/10/24 12:46 Sputum Gram Stain - Preliminary
06/10/24 13:41 Pleural Fluid Fungal Culture - Preliminary
Culture in progress.
Positive cultures are reported as soon as detected.
Final report to follow in four to five weeks.
--- NOTE | 2024-06-11 13:24 | W.DCSUMMARY ---
Discharge Summary
Discharge Data
Date of Admission: 06/09/24
Date of Discharge: 06/11/24
-
Pending Results: Yes
Additional Pending Results:
Follow up pleural effusion cytology and fluid culture results with primary doctor or damascener.
Hospital Course
59-year-old male past medical history of COPD, former crack cocaine smoker, iron deficiency, insomnia, hyperlipidemia is present with shortness of breath. Patient underwent CT chest which showed loculated effusion. Patient underwent thoracentesis
by interventional radiology where 550 cc of pleural fluid was drained. Patient was also started on IV steroids per damascener. Patient breathing significantly improved. Based on CAT scan finding which per pulmonary seems chronic in nature and
patient with history of drug abuse in the past leading to a lot of his symptoms. HIV was checked which was found to be negative. Patient will be transition of IV steroids to p.o. prednisone taper regimen. Patient will need to follow-up with
primary doctor/primary damascener for final culture data and fluid cytology results. Patient verbalized understanding. Patient was stable on room air. Patient be discharged home.
Discharge Plan
-
Patient Disposition: Home (Routine Discharge)
Discharge Diagnosis/Procedures: Acute hypoxic respiratory insufficiency secondary to recurrent Chronic moderate right pleural effusion exudative
Acute copd exacerbation
Condition: Fair
Diet: As tolerated
Activity: With assistance and As tolerated
Driving Restrictions: As prior to admission
Activity Restrictions/Additional Instructions:
Follow up with your primary damascener
Follow up pleural effusion cytology and fluid culture results with primary doctor or damascener.
Referrals:
Carrie Mace, DO [Family Provider] - in less than 1 week
Prescriptions:
New
prednisone 10 mg Tablet
See Rx Instructions .ROUTE .COMPLEX Qty: 30 0RF
Rx Instructions:
Take By Mouth:
40 mg daily x3 days, 30 mg daily x3 days,
20 mg daily x3 days, 10 mg daily x3 days.
Continued
fluticasone propion-salmeterol 250-50 mcg/dose blister with device
1 inh INHALATION R BID
ascorbic acid (vitamin C) [Vitamin C] 1,000 mg Tablet
2 g PO DAILY
atorvastatin 20 mg Tablet
20 mg PO HS
calcium carbonate [Calcium 600] 600 mg calcium (1,500 mg) Tablet
600 mg PO DAILY
ferrous sulfate 325 mg (65 mg iron) Tablet
650 mg PO DAILY
bismuth subsalicylate [Pepto-Bismol] 262 mg/15 mL Suspension
524 mg PO DAILYPRN PRN (Reason: upset stomach)
furosemide 20 mg Tablet
40 mg PO DAILY
albuterol sulfate 90 mcg/actuation HFA aerosol inhaler
1 puff INHALATION R DAILYPRN PRN (Reason: sob)
cholecalciferol (vitamin D3) 50 mcg (2,000 unit) Tablet
50 mcg PO DAILY
omega 9-ngt-sqt-fish oil [Fish Oil] 1,200 (144-216) mg Capsule
1 cap PO DAILY
Changed
ibuprofen 200 mg Tablet
400 mg PO DAILYPRN PRN (Reason: mild pain) Qty: 0 0RF
Discharge Orders:
Discharge Patient (As Directed); Ordered 06/11/24
Ordered By: Otoniel Naranjo
Discharge Date and Time
Discharge Date/Time: 06/11/24 15:27
Print Language: CUBAN
[2024-06-11 14:46] VITALS: BP 137/98
== END 2024-06-11 15:27 | disposition home or self-care (01) | DRG 187 ==
LOC: 4 WEST ACU 15:46
PROVIDERS: Clinical Nurse Specialist Family Health; Physician Assistant; Radiology Vascular & Interventional Radiology; ADMITTING PHYSICIAN Hospitalist; ATTENDING PHYSICIAN Hospitalist; CONSULT PHYSICIAN Internal Medicine; EMERGENCY PHYSICIAN Emergency Medicine; FAMILY PHYSICIAN Family Medicine
PROC: 0W993ZZ Drainage of Right Pleural Cavity, Percutaneous Approach (ICD-10-PCS; 2024-06-10)
DX: J90 Pleural effusion, not elsewhere classified (principal); J44.1 Chronic obstructive pulmonary disease with (acute) exacerbation; J98.11 Atelectasis; R09.02 Hypoxemia; E78.5 Hyperlipidemia, unspecified; E87.6 Hypokalemia; I25.10 Atherosclerotic heart disease of native coronary artery without angina pectoris; Z87.01 Personal history of pneumonia (recurrent); I10 Essential (primary) hypertension; F14.11 Cocaine abuse, in remission; Z83.0 Family history of human immunodeficiency virus [HIV] disease; Z83.3 Family history of diabetes mellitus; Z82.49 Family history of ischemic heart disease and other diseases of the circulatory system; G47.00 Insomnia, unspecified; Z79.899 Other long term (current) drug therapy; A08.4 Viral intestinal infection, unspecified
CPT/HCPCS: 88305; 32555; 71045; 71046; 71250; 80048; 80053; 80061; 80306; 82150; 82945; 82947; 83615; 83735; 83880; 83986; 84155; 84157; 84478; 84484; 85014; 85025; 87015; 87070; 87102; 87116; 87205; 87206; 87389; 88112; 89051; 93005; 94640; 96374; 99285

== ENCOUNTER → 2024-08-03 11:34 | Outpatient (REF) | payer OTHER, SELFPAY | LOC: DHSLP 11:34 | PROVIDERS: ATTENDING PHYSICIAN Internal Medicine; FAMILY PHYSICIAN Family Medicine | DX: G47.61 Periodic limb movement disorder (principal); R06.83 Snoring | CPT/HCPCS: 95810 ==

== ENCOUNTER 2024-08-09 01:36 | Inpatient (IN) | payer OTHER, SELFPAY ==
[2024-08-08 22:22] VITALS: BP 165/89
[2024-08-08 22:36] VITALS: BP 158/83
--- NOTE | 2024-08-08 22:53 | ED.GENMED ---
History of Present Illness
General
Chief Complaint: Breathing Problem
Source: patient
Exam Limitations: none
Time Seen by Provider: 08/08/24 22:26
Nursing documentation reviewed up to this point in time: agreed with
History of Present Illness
History of Present Illness:
This a pleasant 59-year-old male presents to the emergency department with increased shortness of breath. Patient has extensive pulmonary history and was recently admitted to the hospital with a pleural effusion. Patient states that he has been
having difficulty breathing and increased leg swelling over the last several days. Patient reports his shortness of breath has worsened since Monday.
Vital signs are stable. Patient not hypoxic
Nursing note reviewed. I agree with nursing documentation up to this point in time.
Home Meds and allergies reviewed.
NUMBER AND COMPLEXITY OF PROBLEMS ADDRESSED AT THE ENCOUNTER
� Chronic conditions affecting care: COPD exacerbation, former crack cocaine user, severe obstructive airway disease, recurrent pleural effusions that are chronic, iron deficiency, coronary artery disease, MRSA cellulitis, asthma
� Acute Exacerbation and/or Progression of Chronic Illness:
� Differential Diagnosis includes: Return of pleural effusion, COPD exacerbation
AMOUNT AND/OR COMPLEXITY OF DATA TO BE REVIEWED AND ANALYZED
I performed an independent evaluation of the following and my interpretation is:
EKG:
Pulse Ox: Not Hypoxic
Critical Care Technician: Sinus Rhythm
CT:
X-rays:
Ultrasound:
Laboratory Studies:
Other:
Review of other/old records:
Clinical information was obtained by an independent historian:
Prescriptions/Medications Considered but not given:
Further testing considered but not performed:
RISK OF COMPLICATIONS AND/OR MORBIDITY OR MORTALITY OF PATIENT MANAGEMENT
Social determinants of health affecting care: Good Social Support accompanied by her brother who is present at the bedside
Discussion with other providers:
Escalation of care including admission/observation vs risk of discharge considered: After being observed in the emergency department, patient is
CRITICAL CARE NOTE:
Total Time (exclusive of procedures):
Update:
Past History
Past History
ED Past Medical History: Asthma
Social History
Drug: None
Phy Exam
General Physical Exam
General Presentation: well appearing and no apparent distress
General Skin: warm and dry
General Habitus: normal
General Mental: alert
General Hydration: appears well hydrated
ENT Exam
ENT Exam: EOMI, pharynx normal, neck supple and normocephalic
Eye Exam
Eye Exam: PERRL, cornea clear and conjunctiva normal
Cardiovascular Exam
Cardiovascular Exam: regular rate/rhythm, no edema, no murmur and normal peripheral pulses
Pulmonary Exam
Pulmonary Exam: lungs clear, no respiratory distress, no rales, no crackles, no rhonchi, no stridor, no wheezing and no cough
Oxygen Status: oxygen 2 liters via NC
Respirations: mild increase in effort
Breath Sounds: Rhonchi: left lower and right lower
Gastrointestinal Exam
Gastrointestinal Exam: normal bowel sounds, non tender, soft, no organomegaly, no pulsatile mass and non distended
Neurological Exam
Neurological Exam: alert, oriented x3, no motor deficits and speech normal
Musculoskeletal Exam
Musculoskeletal Exam: full ROM and no edema
Skin Exam
Skin Exam: normal color, warm/dry, no rash and no petechia
Psychiatric Exam
Psychiatric Exam: normal mood/affect
Scores
Heart Failure Risk
Heart Failure Risk Score: Not Applicable
Sepsis
Sepsis Screening
Sepsis Assessment: Sepsis Ruled Out
Sepsis Screen
Sepsis Screen: Sepsis Ruled Out
Date: 08/09/24
Time: 04:38
Course
Orders/Labs/Results
Orders:
Orders
08/08/24 22:43
Cardiac Monitoring- Treatment ONCE
EKG- Treatment ONCE
CR Chest - 2 Views Urgent
Comment:
Reason For Exam: dyspnea
08/08/24 22:45
Electrocardiogram (*1) Q3H
Reason for Study: Chest Pain
08/08/24 22:46
Complete Blood Count/With Diff Urgent
Manual Differential Urgent
PTT Urgent
Prothrombin Time Urgent
08/08/24 22:47
Comprehensive Metabolic Panel Urgent
Magnesium Urgent
NT-proBNP Urgent
TSH Urgent
Troponin I Q3H
08/08/24 23:16
COVID-19 Antigen Urgent
Source: Nasal Swab
Lactic Acid Urgent
Blood Culture Urgent
JASWANT Source: Blood/Venous
Specimen Description:
Influenza A+B Rapid Molecular Urgent
JASWANT Source: Nasal Swab
Specimen Description:
08/09/24 01:00
Flush (0.9% Sodium Chloride) [Flush (Nss)] See Dose Instructions IV PER PROTOCOL
08/09/24 01:07
Admit/Transfer Patient As Directed
Co-Sign Provider:
Level of Care: Inpatient admission
Assign to:: Medical/Surgical
Physician / Group: Nathaniel
Diagnosis: Recurrent pleural effusion
Reason for Hospitalization: Recurrent pleural effusion, with hypoxia
Expected length of stay greater than two midnights?: Yes
ELOS- Estimated Length of Stay in days: 2
I certify the patient meets the requirements for IP care: Yes
PRN Pain Medication Management As Directed
May give lesser potent ordered pain med per pt: Yes
preference::
Protocol:: Medication orders for pain may be administered in a
manner that supports deferring to patient preference
when the pt is:
- Requesting an ordered lesser potent pain medication.
Least to most potent pain medications are defined
as: acetaminophen < NSAID < tramadol < opioids
(morphine, oxycodone, hydromorphone).
- Requesting a lesser dose of the same medication IF
ORDERED.
- Requesting a less intrusive route of administration
if both routes are prescribed by the provider (PO <
IV).
08/09/24 01:11
Code Status As Directed
Resuscitation Status: Full Code
08/09/24 01:23
Polymyxin B/Trimethoprim [Polytrim Ophthalmic Solution] See Dose Instructions RIGHT EYE STAT STA
08/09/24 01:45
Electrocardiogram (*1) Q3H
Reason for Study: Chest Pain
08/09/24 03:21
Acetaminophen [Tylenol] 650 mg PO Q4HPRN PRN
Albuterol [ProAIR HFA INHALER] 1 puff INH R DAILYPRN PRN
Artificial Tears (Pf) [Refresh Eye Drops (Pf)] 1 drops RIGHT EYE QIDPRN PRN
Bisacodyl [Dulcolax] 10 mg RECTAL [id number] PRN
Docusate W/Senna [Senokot-S] 1 tablet PO BIDPRN PRN
Guaifenesin/Dextromethorphan [Robitussin Dm] 5 ml PO Q6HPRN PRN
Ondansetron Injectable [Zofran] 4 mg IV Q6HPRN PRN
Polyethylene Glycol Powder [Miralax] 17 grams PO DAILYPRN PRN
08/09/24 03:21
Consult Notification Routine
Specialty to Notify: IRAD (Interventional Radiology)
Consult Notification Routine
Specialty to Notify: Pulmonary
IRAD CONSULT Routine
Consulting Provider: Yan Leon
Was physician already notified: No
Procedure being ordered, including laterality if applicable: thoracentesis for recurrent pl effusion, R > L.
Acknowledgement that appropriate orders are entered: Yes
PULMONARY CONSULT Routine
Consulting Provider: Olayinka Washington
Was physician already notified: No
Reason for consult: recurrent pleural effusion
Body Fluid Cell Count Routine
What is the Body Fluid: pleural fluid
Comment: post procedure
Body Fluid Glucose Routine
Fluid Source: Pleural
Body Fluid LDH Routine
Fluid Source: Pleural
Body Fluid Protein Routine
Fluid Source: Pleural
Body Fluid Triglycerides Routine
Fluid Source: Pleural
Body Fluid pH Routine
Fluid Source: Pleural
Fluid Culture with Gram Stain Routine
JASWANT Source: Pleural Fluid
Specimen Description:
Comment: post procedure
Respiratory Culture/Gram Stain Routine
JASWANT Source: Sputum
Specimen Description:
Activity As Directed
Activity Level: With Assistance
Vital Signs As Directed
Frequency: Per unit guidelines
O2 Therapy [RESP] Routine
Nasal Cannula Liter Flow: 2 LPM
Titrate/Wean O2 to maintain O2 sat greater than (%): 93
DX Deep Vein Thrombosis Video Routine
08/09/24 Breakfast
Regular
At Your Request: Full Participation
Does patient need a safe tray?: No
Basic Metabolic Panel IN AM
Complete Blood Count/No Diff IN AM
LDH IN AM
Comment: post procedure, add on to morning labs if already drawn
Magnesium IN AM
Total Protein IN AM
Comment: post procedure, add on to morning labs if already drawn
08/09/24 08:00
Fluticasone/Salmeterol 115/21 [Advair Hfa 115/21 Mcg Inhaler] 1 puff INH R BID
Furosemide [Lasix] 40 mg PO DAILY
Guaifenesin [Mucinex] 600 mg PO Q12
Polymyxin B/Trimethoprim [Polytrim Ophthalmic Solution] See Dose Instructions RIGHT EYE QID
08/09/24 18:00
Enoxaparin Sodium [Lovenox] 40 mg SC QPM
08/09/24 22:00
Atorvastatin [Lipitor] 20 mg PO HS
Abnormal Lab Results
08/08/24 08/08/24
22:46 22:47
MCV 95.7 H fL
(80.0-94.0)
MCH 33.2 H pg
(27.0-31.0)
MPV 10.5 H fL
(7.4-10.4)
Band Neutrophils 24 H %
(0-3)
Lymphocytes (Manual) 3 L %
(20-51)
Monocytes (Manual) 12 H %
(2-9)
PT 15.4 H Sec
(11.4-14.6)
Chloride 109 H mmol/L
(98-107)
BUN 25 H mg/dl
(9-20)
Glucose 145 H mg/dl
(70-99)
AST 16 L U/L
(17-59)
Albumin 3.4 L g/dl
(3.5-5.0)
08/08/24 22:46
08/08/24 22:47
Vital Signs
Initial and Last Documented VS:
Initial Vital Signs
Temp Pulse Resp BP Pulse Ox
98.6 F 124 24 165/89 88
08/08/24 22:22 08/08/24 22:22 08/08/24 22:22 08/08/24 22:22 08/08/24 22:22
Last Documented Vital Signs
Temp Pulse Resp BP Pulse Ox
97.4 F 83 20 128/79 96
08/09/24 03:40 08/09/24 03:40 08/09/24 03:40 08/09/24 03:40 08/09/24 03:45
*Critical Care Note
Total Time (30-74mins, 75-104mins- exclusive of procedures): Not Applicable
Update Note
Update Note:
Patient still dyspneic on exertion.
2 L nasal cannula. He is not on home O2 at home
X-ray shows bilateral pleural effusions, similar to previous on June 09, 2024
Patient to be brought into the hospital for continued treatment, and possible drainage
ED Attending Note
-
Portions of this chart may have been created with voice recognition software.� Occasional wrong word or��sound alike� substitutions may have occurred due to the inherent limitations of voice recognition software.
Discharge Plan
Departure
Patient Disposition: Admit
Date of Disposition: 08/09/24
Time of Disposition: 00:15
Presentation/result/management discussed w/ accepting MD/DO: Hospitalist
Patient with high blood pressure during this ER visit?: Yes
Condition: Good
Discharge Problem:
Pleural effusion, Dyspnea on exertion, COPD exacerbation
Interventions
Interventions:
*Risk Screen - Suicide Last Done: 08/09/24 03:37
*General Assessment Last Done: 08/08/24 22:22
*Neglect/Abuse Screening Last Done: 08/08/24 22:22
*ED- Fall Risk Assessment Last Done: 08/08/24 22:49
*ED COVID-19 Vaccine History Last Done: 08/09/24 03:37
*Nursing Disposition Last Done: 08/09/24 03:00
ED- Cardiac Assessment Last Done: 08/08/24 22:49
ED- Pulmonary Assessment Last Done: 08/08/24 22:49
Discharge Date and Time
Discharge Date/Time: 08/09/24 03:00
[2024-08-08 23:00] VITALS: BP 134/78
[2024-08-08 23:22] LABS: INR 1.17; PT 15.4 Sec (11.4-14.6)
[2024-08-08 23:23] LABS: APTT 34.4 Sec (23.4-35.0)
[2024-08-08 23:28] LABS: ALT (SGPT) 16 U/L (0-50); AST (SGOT) 16 U/L (17-59); Albumin 3.4 g/dl (3.5-5.0); Alkaline Phosphatase 98 U/L (38-126); Blood Urea Nitrogen 25 mg/dl (9-20); Calcium 8.9 mg/dl (8.4-10.2); Carbon Dioxide 27 mmol/L (22-30); Chloride 109 mmol/L (98-107); Glucose 145 mg/dl (70-99); Magnesium 1.7 mg/dl (1.6-2.3); Potassium 3.6 mmol/L (3.5-5.1); Sodium 142 mmol/L (135-145); Total Bilirubin 0.9 mg/dl (0.2-1.3); Total Protein 6.3 g/dl (6.3-8.2); eGFR > 60.00
[2024-08-08 23:35] LABS: NT-proBNP 215 pg/ml; Troponin I < 0.012 ng/ml
[2024-08-08 23:45] LABS: Hemoglobin 15.6 g/dL (13.0-18.0); Mean Corp Hgb Conc. 34.7 g/dL (33.0-37.0); Mean Corpuscular Hgb 33.2 pg (27.0-31.0); Mean Corpuscular Volume 95.7 fL (80.0-94.0); Mean Platelet Volume 10.5 fL (7.4-10.4); Platelet Count 245 10^3/uL (130-400); Red Cell Dist. Width 11.8 % (11.5-14.5); White Blood Cell Count 7.7 10^3/uL (4.8-10.8)
[2024-08-08 23:46] LABS: Lactic Acid 1.1 mmol/L (0.7-2.0)
[2024-08-08 23:50] LABS: COVID-19 Antigen Negative (Negative)
[2024-08-08 23:54] LABS: Absolute Neutrophils -Man Diff 6.2 10^3/uL (1.4-6.5); Band Neutrophils 24 % (0-3); Eosinophils 4 % (0-6); Lymphocytes 3 % (20-51); Monocytes 12 % (2-9); Segmented Neutrophils 57 % (42-75)
[2024-08-08 23:55] LABS: Normal RBC Morphology Yes; Platelets Checked Yes; Total Cells Counted 100; Toxic Granulation 1+
[2024-08-08 23:55] LABS: TSH 1.72 uIU/ml (0.47-4.68)
[2024-08-09] VITALS (9 sets, daily range): BP systolic 70–135; BP diastolic 67–92; BMI 27.5
--- NOTE | 2024-08-09 00:28 | HPS.HSE ---
Family Physician
-
Family Physician: Abimbola Wright
Chief Complaint
-
Shortness of breath
History of Present Illness
This is a 59-year-old with past medical history significant for emphysema, chronic lower extremity edema, history of recurrent pleural effusions presents to the emergency department with worsening shortness of breath and dyspnea on exertion over the
last few days.
Patient reports touch of flulike symptoms few days ago. He also reported a right red eye without purulent drainage but with some itching. He reports that there has been no chest pain. He denies feeling dizzy or lightheaded. He denies having any
fevers or chills. He reports chronic dependent edema which he says is not changed over the last few days.
Patient was admitted in May with pleural effusion status post thoracentesis. At that time was also found to be in COPD exacerbation. He was treated with thoracentesis as well as steroid taper. He did improve. The thoracentesis showed exudative
pleural effusion with negative malignant cells and positive inflammatory cells.
Prior to that the patient has had 2 previous thoracentesis 1 in early 2019s and 1 in 2023. His 30s had a prior follow-up with ball maker at [facility] but has not seen them recently. He said he has been worked up and he has a negative evaluation
for congestive heart failure as well as negative evaluation for rheumatological diseases. Patient denies any history of TB and states he has been tested for TB multiple times in the past. Also denies any risk factors for TB such as incarceration,
living in crowded environments, HIV, immunosuppressants or travels to endemic regions.
On arrival in the emergency department he was afebrile, blood pressure was 129/76 with a pulse of 105 and he was satting at 93%. He was tachypneic to the low 30s.
ECG shows sinus tachycardia at rate of 105 with incomplete right bundle which is unchanged from prior. Troponin was negative. BNP was 200.
Patient CBC was completely within the normal range. He had normal-appearing electrolytes BUN and creatinine as well as a normal glucose level.
COVID test was negative.
Medical History
Past Medical History
Past Medical History: Reports Other
Additional Past Medical History:
recurrent pleural effusions unclear�multiple thoracentesis starting 11/12/2018, 10/2019, 06/2023 Amrit Gomez
recurrent pneumonia
chronic bronchitis
insomnia
questionable CHF
HTN
HLD
prior crack cocaine smoker ., Sexual history partners that use IVDA last 04/08/2016 IVDA crystal meth hesitant to ask about homosexuality
Past Surgical History: Reports Other
Additional Past Surgical History:
multiple thoracentesis starting 11/12/2018, 10/2019, 06/2023 Amrit Gomez
Bronchoscopy October 2019 Amrit Heller
Cardiac cath June 2023 Amrit Gomez nonobstructive CAD
Social History
Tobacco: Non-smoker
Alcohol: None
Drug: Former User (Crack cocaine smoker )
Personal: Single
Living: Alone
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
Family History
Family History: Other (Mother history of HIV/AIDS/liver failure age 51, father [place] age 72 disease, 3 brothers 1 with DM 2)
Allergies / Home Medications
Allergies reflects when Allergies were last updated in [facility].
Home Medications with original date entered in [facility]
Allergy/Medication List:
Allergies
Allergy/AdvReac Type Severity Reaction Status Date / Time
No Known Allergies Allergy Verified 06/09/24 11:51
Home Medications
albuterol sulfate 90 mcg/actuation aerosol inhaler 1 puff inhalation R DAILYPRN PRN sob 06/09/24
ascorbic acid (vitamin C) 1,000 mg tablet (Vitamin C) 2 g PO DAILY 06/09/24
atorvastatin 20 mg tablet 20 mg PO HS 06/09/24
bismuth subsalicylate 262 mg/15 mL oral suspension (Pepto-Bismol) 524 mg PO DAILYPRN PRN upset stomach 06/09/24
calcium carbonate (Calcium 600) 600 mg PO DAILY 06/09/24
cholecalciferol (vitamin D3) 50 mcg (2,000 unit) tablet 50 mcg PO DAILY 06/09/24
ferrous sulfate 325 mg (65 mg iron) tablet 650 mg PO DAILY 06/09/24
fluticasone 250 mcg-salmeterol 50 mcg/dose blistr powdr for inhalation 1 inh inhalation R BID 06/09/24
furosemide 20 mg tablet 40 mg PO DAILY 06/09/24
ibuprofen 200 mg tablet 800 mg PO DAILYPRN PRN mild pain 06/09/24
omega 1-hyr-blr-fish oil 1,200 mg (144 mg-216 mg) capsule (Fish Oil) 1 cap PO DAILY 06/09/24
Review of Systems
-
History Source: Patient
A 12 point ROS was completed and negative except as noted: Yes
Constitutional: Denies Fever or Chills
EENT: Denies Sore Throat or Runny Nose
Respiratory: Reports Trouble Breathing (Dyspnea on exertion, wheezing, persistent cough)
Cardiac: Denies Chest Pain, Diaphoresis, Palpitations or Syncope
Abdomen/GI: Reports Diarrhea (Watery black 3-4 times a day since 05/31/2024); Denies Abdominal Pain, Nausea, Vomiting, Constipated, Bloody Stools or Black Stools
: Denies Dysuria, Frequency, Flank Pain, Incontinence, Difficulty Voiding, Urgency, Bleeding or Dark Urine
Musculoskeletal: Reports Edema (Trace bilateral lower legs); Denies Joint Pain
Skin: Denies Itching or Rash
Neurological: Denies Dizzy, Headache or Weakness
Endocrine: Reports No Symptoms
Hematologic/Lymphatic: Reports No Symptoms
Psych: Reports Calm
Physical Exam
Vital Signs
Vital Signs
Temp Pulse Resp BP Pulse Ox
98.5 F 105 37 129/76 93
08/08/24 23:15 08/09/24 00:00 08/09/24 00:00 08/09/24 00:00 08/09/24 00:00
Physical Exam
General: Comfortable and Conversant; No Pain, Fever or Chills
HEENT: NormoCephalic, Anicteric, PERRLA (Right eye with conjunctival injection. Itching. No foreign body. Tearing without exudate. Periorbital swelling or tenderness.), [place] Conjunctivae and No Ptosis
Respiratory: Clear and Decreased Breath Sounds; No Wheezes, Rales or Crackles
Cardiac: S1/S2, Regular Rhythm and Peripheral Edema; No Murmur, Rub or Gallop
Breast: Deferred by me
GI: Soft, Non Tender, Non Distended, Normal Bowel Sounds and No Hepatosplenomegaly
Rectal: Deferred by Provider
Genito-urinary: Deferred by me
Musculoskeletal: No Clubbing, No Cyanosis, Edema, Left Lower Extremity (Trace lower legs) and Edema, Right Lower Extremity (Trace lower legs); No Edema, Left Upper Extremity or Edema, Right Upper Extremity
Skin: Warm and Dry; No Rash
Neuro: AO x 3, No Motor Deficits, Nonfocal/grossly intact, Cranial Nerves Intact and No Sensory Deficits; No Slurred Speech, Facial Droop, Tremors or Sedated
Psych: Calm
Laboratory Results
-
08/08/24 22:46
08/08/24 22:47
Laboratory Results
PT 15.4 Sec (11.4-14.6) H 08/08/24 22:46
INR 1.17 08/08/24 22:46
APTT 34.4 Sec (23.4-35.0) 08/08/24 22:46
Lactic Acid 1.1 mmol/L (0.7-2.0) 08/08/24 23:16
Total Bilirubin 0.9 mg/dl (0.2-1.3) 08/08/24 22:47
AST 16 U/L (17-59) L 08/08/24 22:47
ALT 16 U/L (0-50) 08/08/24 22:47
Alkaline Phosphatase 98 U/L (38-126) 08/08/24 22:47
Troponin I < 0.012 ng/ml 08/08/24 22:47
Data Reviewed
-
Diagnostic Radiology: Image Personally Visualized and interpreted
Medical Tests (Nuc Med, Echo, EKG etc): Image Personally Visualized and interpreted
Lab Data: Labs Reviewed by me
Impression/Plan
-
IMPRESSION:
59-year-old with history of reactive airways, recurrent pleural effusion, chronic lower extremity edema who presents to the emergency department with worsening shortness of breath and hypoxia at home to 86% on room air at rest and found to have
recurrence of his bilateral pleural effusion. There is pleural effusion on x-ray with right greater than left and similar in appearance to his prior presentation.
He has no signs of an acute infection. COVID and flu test were negative. He had an extensive fluid analysis on his last admission and it was negative for routine bacterial culture, fungal culture, TB and malignant cells. There were inflammatory
cells noted at the time with the exudative effusion. Patient reports that he does have chronic lower extreme edema but has been evaluated for congestive heart failure with no positive findings. He states he had a cardiac cath that did not show
elevated end-diastolic pressures or significant coronary artery disease. He has echoes that have been normal. He reports that his workup for inflammatory processes have been negative especially for rheumatoid arthritis.
At this point the etiology of his recurrent pleural effusions remain unclear. Suspect possibly chronic congestive heart failure but his BNP today was negative. He also has history of negative cardiac workup in the past.
PLAN:
Recurrent pleural effusion -complicated by hypoxia with no signs of acute infection
- admit to med/surg
- supplemental oxygen to keep sat > 92%
- planned therapeutic thoracentesis in am
- will repeat fluid analysis for exudative effusion as well as routine cultures
- IR consultation
- pulmonary consultation
Hypoxia - pleural effusion, wet sounding but non-productive cough. Mild COPD exacerbation
- hold off on abx pending tap
- check procalcitonin
- albuterol prn
- hold prednsione
Conjunctivitis - Given mild URI symptoms, suspect viral conjunctivitis
- topical eye drops for comfort
Edema -chronic lower extremity edema unchanged. No evidence of pulmonary edema. Normal BNP and troponin.
-Continue his home dose of Lasix at 40 mg daily
- Continue statin
COPD -denies tobacco history. Has exposure to inhaled drugs but otherwise no known exposures.
- Continue inhaled ICS/LABA
- PRN albuterol
- decongestants and cough suuppression
DVT PPX - lovenox sq
Code status - Full code
[2024-08-09] MEDS: POLYTRIM OPHTHALMIC SOLUTION 2 DROP RIGHT EYE (01:42)
--- NOTE | 2024-08-09 03:55 | PTCARENOTE ---
Patient arrived via stretcher with dx of recurrent pleural effusions. 02 @ [address] CEE[address] Denies pain or other discomfort. AAOX3. Pleasant and cooperative with care. Bilateral eye redness. [employer] aware with ointment ordered. Call orellana within
reach. Oriented to unit.
[2024-08-09] MEDS: ADVAIR HFA 115/21 MCG INHALER 1 PUFF INH ×2 (06:19→19:50)
[2024-08-09 07:26] LABS: Hemoglobin 14.3 g/dL (13.0-18.0); Mean Corp Hgb Conc. 34.9 g/dL (33.0-37.0); Mean Corpuscular Hgb 33.6 pg (27.0-31.0); Mean Corpuscular Volume 96.2 fL (80.0-94.0); Mean Platelet Volume 10.2 fL (7.4-10.4); Platelet Count 238 10^3/uL (130-400); Red Blood Cell Count 4.26 10^6/uL (4.70-6.10); Red Cell Dist. Width 11.9 % (11.5-14.5); White Blood Cell Count 5.7 10^3/uL (4.8-10.8)
[2024-08-09 07:54] LABS: Procalcitonin 0.47 ng/ml (0.0-0.25)
[2024-08-09 08:35] LABS: Blood Urea Nitrogen 27 mg/dl (9-20); Calcium 8.5 mg/dl (8.4-10.2); Carbon Dioxide 32 mmol/L (22-30); Chloride 105 mmol/L (98-107); Estimated Creatinine Clearance > 125 ml/min; Glucose 97 mg/dl (70-99); LDH 148 U/L (120-246); Magnesium 1.8 mg/dl (1.6-2.3); Potassium 3.6 mmol/L (3.5-5.1); Sodium 141 mmol/L (135-145); Total Protein 5.6 g/dl (6.3-8.2); eGFR > 60.00
[2024-08-09] MEDS: LASIX 40 MG PO (08:50)
[2024-08-09] MEDS: MUCINEX 600 MG PO ×2 (08:50→20:18)
[2024-08-09] MEDS: POLYTRIM OPHTHALMIC SOLUTION 2 DROP BOTH EYES ×4 (08:51→22:01)
[2024-08-09 09:58] LABS: Body Fluid pH 7.16
[2024-08-09 10:14] LABS: Body Fluid Glucose 52 mg/dl; Body Fluid LDH 300 U/L; Body Fluid Protein 3.9 g/dl; Body Fluid Triglycerides < 30 mg/dl
--- NOTE | 2024-08-09 10:17 | CON.PUL ---
Consultation
Consultation Request
Date/Time Consultation Requested: 08/09/24
Date/Time Consultation Performed: 08/09/24
Performing Provider: Benedict
Reason for Consultation: Effusion
Medical History
-
History of Present Illness:
Patient is a 59-year-old with past medical history significant for emphysema, chronic lower extremity edema, history of recurrent pleural effusions presents to the emergency department with worsening shortness of breath and dyspnea on exertion over
the last few days. Patient reports touch of flulike symptoms few days ago. He does have R eye conjuctivitis.
Patient was admitted in May with pleural effusion status post thoracentesis. At that time was also found to be in COPD exacerbation. He was treated with thoracentesis as well as steroid taper. He did improve. The thoracentesis showed exudative
pleural effusion with negative malignant cells and positive inflammatory cells.
On arrival in the emergency department he was afebrile, blood pressure was 129/76 with a pulse of 105 and he was satting at 93%. He was tachypneic to the low 30s.
CXR showing recurrence of RLL effusion. Underwent tap by IR this admission, with only extraction of 60cc of fluid.
Past Medical History
Past Medical History: Other (see list below)
Social History
Tobacco: Non-smoker
Alcohol: None
Drug: None
Family History
Family History: Reviewed & Not Pertinent
Allergies / Home Medications
Allergies
Allergy/AdvReac Type Severity Reaction Status Date / Time
No Known Allergies Allergy Verified 08/08/24 22:25
Home Medications
�Medication �Instructions �Recorded �Confirmed �Last Taken �Type
albuterol sulfate 90 mcg/actuation 1 puff inhalation R DAILYPRN PRN 06/09/24 08/08/24 06/09/24 History
aerosol inhaler sob
ascorbic acid (vitamin C) 1,000 mg 2 g PO DAILY 06/09/24 08/08/24 06/08/24 History
tablet (Vitamin C)
atorvastatin 20 mg tablet 20 mg PO HS 06/09/24 08/08/24 Unknown History
bismuth subsalicylate 262 mg/15 mL 524 mg PO DAILYPRN PRN upset 06/09/24 08/08/24 06/09/24 History
oral suspension (Pepto-Bismol) stomach
calcium carbonate (Calcium 600) 600 mg PO DAILY 06/09/24 08/08/24 06/08/24 History
cholecalciferol (vitamin D3) 50 50 mcg PO DAILY 06/09/24 08/08/24 06/08/24 History
mcg (2,000 unit) tablet
ferrous sulfate 325 mg (65 mg 650 mg PO DAILY 06/09/24 08/08/24 06/08/24 History
iron) tablet
fluticasone 250 mcg-salmeterol 50 1 inh inhalation R BID 06/09/24 08/08/24 06/09/24 History
mcg/dose blistr powdr for
inhalation
furosemide 20 mg tablet 40 mg PO DAILY 06/09/24 08/08/24 06/08/24 History
omega 0-uso-yci-fish oil 1,200 mg 1 cap PO DAILY 06/09/24 08/08/24 06/08/24 History
(144 mg-216 mg) capsule (Fish Oil)
ibuprofen 200 mg tablet 400 mg (2 x 200 mg) PO DAILYPRN 06/11/24 08/08/24 06/09/24 Rx
PRN mild pain #0 tabs
magnesium 200 mg tablet 400 mg PO DAILY 08/08/24 08/08/24 Unknown History
Review of Systems
-
History Source: Patient
All other systems: Negative unless noted
Vitals / Labs / Diagnostic Testing
Vital Signs
Temp Pulse Resp BP Pulse Ox
98.0 F 72 18 120/79 95
08/09/24 09:15 08/09/24 09:34 08/09/24 09:34 08/09/24 09:34 08/09/24 09:34
Lab Data
08/09/24 07:05
08/09/24 07:05
Laboratory Results
08/08/24
22:46
PT 15.4 H
INR 1.17
APTT 34.4
Microbiology
08/08/24 23:16 Nasal Swab Influenza Types A & B (BRUNO) - Final
Negative for Influenza A & B, NAAT
Negative results must be combined with clinical observations
and patient history.
Nucleic Acid Amplification test (NAAT)performed on the
[employer] NOW platform.
Diagnostic Testing:
Physical Exam
-
HEENT: Normocephalic, Anicteric, Moist Mucous Membranes and Other (R eye redness/conjuctivitis)
Cardiovascular: S1/S2 and Regular Rhythm
Respiratory: Clear (decreased at R base) and Non-Labored Respirations
GI: Soft, Non Distended and Non Tender
Neurology: Awake, Alert, Oriented and No Motor Deficits
Skin: Warm, Dry and Good Color
General: Comfortable and Other (NAD)
Assessment
-
Patient is a 59-year-old with past medical history significant for emphysema, chronic lower extremity edema, history of recurrent pleural effusions presents to the emergency department with worsening shortness of breath and dyspnea on exertion over
the last few days. Patient reports touch of flulike symptoms few days ago. He does have R eye conjunctivitis. Patient was admitted in May with pleural effusion status post thoracentesis showing exudative pleural effusion with negative malignant
cells and positive inflammatory cells. CXR showing recurrence of RLL effusion. Underwent tap by IR this admission, with only extraction of 60cc of fluid. We are consulted for evaluation 08/09/24.
Recurrent pleural effusions, RLL s/p thora
Suspect empyema
History of multiple thoracentesis, exudative w/ negative culture/cytology
SOB
Right eye conjunctivitis
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
Diarrhea with hypokalemia
HLD
Prior h/o smoking cocaine ([id number])-could explain pulmonary findings.
Plan
Stable on RA, no hypoxemia noted
R>L Pleural effusions, chronic, recurrent (Exudative in the past).
S/p (At least thrice) thoracentesis since 0126-2325, he notes that he did not have recurrence until 2023
Admitted to [facility] with chest tube placement in 2023, treated with course of IV abx
Now again fluid has recurred 05/2024- prior adm at , reviewed
With h/o hydropneumothorax after drainage in the past, ?trapped lung with Maqlgs-aw-zthka
s/p IR Thora 06/11/2024: Exudate. Lymphocytic suggest chronicity. Cultures so far negative. Cytology negative. LDH normal. Amylase normal. Triglycerides normal.
He now returns again this admission 07/2024 (which would make this his 4th episode of recurrence)
s/p thora attempt 08/09 but only 60cc extracted -- chem: 5.19 - 0222 - LDH 300 suggestive of empyema
I am not sure how beneficial a chest tube in this situation is with a small pocket and not much extraction via thora
Patient reports outpatient work up has been negative for congestive heart failure, rheumatological diseases. Patient denies any history of TB and states he has been tested for TB multiple times in the past. Also denies any risk factors for TB such
as incarceration, living in crowded environments, HIV, immunosuppressants or travels to endemic regions.
CT chest noted: Chronic appearing bilateral pleural effusions right greater than left. Pleural thickening suggestive of chronicity-suspect patient will have pneumothorax ex vacuo after thoracentesis.
I will repeat a CT chest
May need CTS opinion at this point given recurrence and failure of abx/medical management
He had been offered surgical opinion in past
Consult placed, I reviewed with team
Not in exacerbation of COPD. Known h/o obstructive airway disease (PFT 2019, severe obstructive disease)
Patient is a never smoker-did have exposure to crack cocaine up to 15 years ago. Likely explains pulmonary findings.
Resumed on home inhalers, advair
Does not appear to need IV steroids, not wheezing
PRN Albuterol
Patient reports RHC/LHC in the past with numerous ECHOs in the past not suggestive of CHF.
We will follow
Diagnostic Data
CXR 08/09/24- Lungs: Bilateral pleural effusions, right greater than left are again seen as well is bilateral parenchymal opacification. No findings to confirm pneumothorax.
06/10/24- Status post right thoracentesis. No evidence for pneumothorax.
CT CHEST 06/09/24- Bilateral pleural effusions, right greater than left, with mild loculation. Bilateral thickened peripheral pleural rinds, most likely chronic inflammatory rinds. Malignant pleural effusion is not excluded. There is of parenchymal
opacity with air bronchograms within both lower lobes, most likely chronic atelectasis. Focal area of confluent parenchymal opacity with air bronchograms in the periphery of the right middle lobe, probably scarring/chronic atelectasis.
Multiple small nodular densities throughout both lungs, slightly larger in the right upper lobe. This would suggest small airway pneumonitis, chronicity uncertain. See above discussion.
Vascularity is felt to likely not be actively congested based on CT findings, but please correlate clinically.
Coronary artery calcifications are present. Please correlate with symptoms of and risk factors for coronary artery disease, with further workup as clinically appropriate.
Small to moderate central hiatal hernia.
ECHO
PFT
Reports and relevant images were personally reviewed.
-----
Total time spent on this consultation _78__ minutes which includes review of history, physical exam, medications, llaboratory data, personal review of imaging, extensive review of outpatient records, and discussions with care team.
[2024-08-09 10:19] LABS: Body Fluid Mononuclear 66.7 %; Body Fluid Polymorphonuclear 33.3 %; Body Fluid WBC 3351 /CUMM
[2024-08-09 10:32] LABS: Body Fluid Second Tech SS
--- NOTE | 2024-08-09 15:03 | W.PN.HOSP.TC ---
Addendum entered and electronically signed by Carlos Benites MD 08/10/24 08:17:
59 male history of DM history of fusion presents with worsening shortness of breath dyspnea on exertion over the last few days and reports having flulike symptoms few days prior.
Should be noted has a history of recurrent/repeated need for thoracentesis. Thoracentesis previously showed exudative pleural effusion with negative malignant cells positive for inflammatory cells.
NAD
Scleral Anicteric
MMM
No JVD
Diminished breath sounds worse on the right than the left however also diminished. Otherwise without crackles or rhonchi
RRR, S1/S2
Soft, NT, ND, BS+
Warm, Dry
AAOx3
Calm
Acute hypoxemic respiratory failure with unclear etiology though likely related to recurrent pleural effusion.
IR consulted for thoracentesis
Pulmonary consult
Follow-up fluid analysis cytology Gram stain
Maintain SpO2 greater than 92%
Conjunctivitis given mild URI symptoms suspect viral
Topical optic drops for comfort
Next COPD without evidence of acute bronchospasm
Continue ICS/LABA. Decongestant
Original Note:
Today's Communication/Plan
-
Pulmonology consultation
Follow pleural fluid analysis and culture report
Wean off oxygen as able
Assessment / Plan
Assessment / Plan
Impression
Patient is a 59-year-old male with past medical history of emphysema chronic lower extremity edema, history of recurrent pleural effusion with last hospital admission in May 2024 with shortness of breath. CT scan findings at that time were
suggestive of bronchiolitis of chronic nature. Pleural fluid analysis at that time was exudative, and the fluid culture was negative for acid-fast bacilli, yeast or any bacteria. He remained afebrile without leukocytosis. In the past he had right
heart catheterization/left heart catheterization in June 2023, revealing nonobstructive coronary disease. He had multiple echocardiograms that were inconclusive. Bronchoscopy has been done in 2019 with negative cytology.
Patient presented with worsening dyspnea over the last few days with exertion. Reports flulike symptoms few days ago with the right eye, remained afebrile. On presentation to the ER he was tachycardic with a heart rate of 105, tachypneic. In the
ED chest x-ray was done that revealed bilateral pleural effusion right greater than left. COVID test was negative, influenza AMB negative, CBC and electrolytes within normal range. Patient admitted for workup of recurrent pleural effusion
complicated by hypoxia, patient breathing on 4 L of oxygen.
Assessment/plan
#Acute hypoxic respiratory failure secondary to recurrent pleural effusion
CXR 08/09/24- Lungs: Bilateral pleural effusions, right greater than left are again seen as well is bilateral parenchymal opacification. No findings to confirm pneumothorax.
Goal saturation greater than 92%
Thoracocentesis done, drained 60 mL of fluid, fluid analysis sent for cell count, protein, LDH, glucose, culture
Patient breathing on 4 L of oxygen in the morning
Wean off oxygen as able
Continue to hold on antibiotics
Continue home medications
Pulmonology consultation appreciated-suspect empyema, unsure of benefits of chest tube as the pocket is small, plan to start IV antibiotics
CTS consultation due to recurrence
#Conjunctivitis
Most likely viral
Treat symptomatically with supportive measures
#Chronic bilateral lower extremity edema
Patient not sure if it has always been left greater than right
Ultrasound of left lower extremity, negative for any DVT
Continue home dose of Lasix
Follow-up with lymphedema clinic on outpatient basis
# COPD-pulmonary function test done in 2019 consistent with COPD
Continue inhaled ICS/LABA with as needed rescue inhaler
Continue to monitor
#History of cocaine/drug use 15 to 20 years ago
#Mother had HIV/patient HIV negative
DVT prophylaxis-Lovenox
CODE STATUS-full code
Anticipated Discharge: 24 - 48 hours
Subjective/Interval History
-
Date of Service: August 09, 2024
Patient complains of shortness of breath and becomes short of breath even when with talking, breathing on 4 L of oxygen
Objective Data
-
Labs:
Laboratory Results
08/09/24
07:05
WBC 5.7
Hgb 14.3
Hct 41.0
Plt Count 238
Sodium 141
Potassium 3.6
Chloride 105
Carbon Dioxide 32 H
BUN 27 H
Creatinine 0.7
Glucose 97
Calcium 8.5
Vital Signs:
Vital Signs
Temp Pulse Resp BP Pulse Ox
98.0 F 72 18 120/79 96
08/09/24 09:15 08/09/24 09:34 08/09/24 09:34 08/09/24 09:34 08/09/24 11:31
Review of Systems
-
All other systems: Reviewed and negative
Physical Exam
-
General: Respiratory Distress and Other (Breathing on 4 L oxygen)
HEENT: Other (Right eye with conjunctival injection and watery discharge, mild periorbital swelling/tenderness)
Respiratory: Other (Bilaterally decreased breath sounds at lung bases, fine crackles at lung bases)
Cardiac: Regular Rhythm and S1/S2; Negative Murmur, Rub or Gallop
GI: Soft, Nontender, Nondistended and Normal Bowel Sounds
Musculoskeletal: No Clubbing, No Cyanosis, Edema, Right Lower Extrem and Edema, Left Lower Extrem (Left greater than right, pitting edema)
Skin: Warm and Dry
Neuro: Awake, AO x 3 and Nonfocal/Grossly Intact
Psych: Calm and Intact Judgement/Insight
--- NOTE | 2024-08-09 15:56 | CONSULT.CT ---
Consultation
-
Date/Time Consultation Requested: 08/09/24
Date/Time Consultation Performed: 08/09/24
Requesting Provider: Dr Elizabeth Mcmullen
Performing Provider: Felicita JULES for Trevor Chacon MD
Reason for Consultation: recurrent pleural effusion
Patient History
Physicians
Family Physician: Abimbola Wright
History of Present Illness
59-year-old male with past medical history significant for emphysema, chronic lower extremity edema, and history of recurrent pleural effusions requiring thoracenteses (early and 2023), was admitted via the emergency department on 08/08/24
with worsening shortness of breath and dyspnea on exertion over the last few days. Negative screen for COVID and Influenza A & B. No leukocytosis, WBC 100F. Chronic B/L LE edema (L>R) unchanged. Denies chest pain, syncope. Patient was admitted in
May 2024 with COPD exacerbation and pleural effusion requiring thoracentesis (negative for malignant cells) and steroid taper. Patient reportedly had a negative evaluation for congestive heart failure, coronary disease (Left heart cath 2023), as
well as a negative evaluation for rheumatological diseases. Prior negative TB screen. Denies travel outside the country and environmental exposure. Unable to tolerate MRI due to claustrophobia and inability to lie flat.
Past Medical History
Past Medical History: COPD, CEE and Other (recurrent pleural effusions; chronic B/L LE edema)
Past Surgical History
Past Surgical History: None
Social History
Alcohol: None
Drug: Former User (quit cocaine 2004)
Tobacco: Non-Smoker
Personal: Single
Living: Alone
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
Allergies
Allergy/AdvReac Type Severity Reaction Status Date / Time
No Known Allergies Allergy Verified 08/08/24 22:25
Home Medications
�Medication �Instructions �Recorded �Confirmed �Type
albuterol sulfate 90 mcg/actuation 1 puff inhalation R DAILYPRN PRN 06/09/24 08/08/24 History
aerosol inhaler sob
ascorbic acid (vitamin C) 1,000 mg 2 g PO DAILY 06/09/24 08/08/24 History
tablet (Vitamin C)
atorvastatin 20 mg tablet 20 mg PO HS 06/09/24 08/08/24 History
bismuth subsalicylate 262 mg/15 mL 524 mg PO DAILYPRN PRN upset 06/09/24 08/08/24 History
oral suspension (Pepto-Bismol) stomach
calcium carbonate (Calcium 600) 600 mg PO DAILY 06/09/24 08/08/24 History
cholecalciferol (vitamin D3) 50 50 mcg PO DAILY 06/09/24 08/08/24 History
mcg (2,000 unit) tablet
ferrous sulfate 325 mg (65 mg 650 mg PO DAILY 06/09/24 08/08/24 History
iron) tablet
fluticasone 250 mcg-salmeterol 50 1 inh inhalation R BID 06/09/24 08/08/24 History
mcg/dose blistr powdr for
inhalation
furosemide 20 mg tablet 40 mg PO DAILY 06/09/24 08/08/24 History
omega 1-ate-weo-fish oil 1,200 mg 1 cap PO DAILY 06/09/24 08/08/24 History
(144 mg-216 mg) capsule (Fish Oil)
ibuprofen 200 mg tablet 400 mg (2 x 200 mg) PO DAILYPRN 06/11/24 08/08/24 Rx
PRN mild pain #0 tabs
magnesium 200 mg tablet 400 mg PO DAILY 08/08/24 08/08/24 History
Review of Systems
-
History Source: Patient
HEENT: Reports Other (left conjuntiva red)
Respiratory: Reports SOB and Cough (non-productive)
Cardiac: Reports No Symptoms
Abdomen/GI: Reports No Symptoms
: Reports No Symptoms
Musculoskeletal: Reports No Symptoms
Skin: Reports No Symptoms
Neurological: Reports No Symptoms
Vascular: Reports No Symptoms (chronic B/L LE edema) and Other
Physical Exam
Vital Signs
Temp 100.0 F 08/09/24 15:00
Temp route: Oral 08/09/24 15:00
Pulse 96 08/09/24 15:00
Resp Rate 20 08/09/24 15:00
Blood pressure 131/80 08/09/24 15:00
Blood pressure extremity used: Right upper arm 08/09/24 15:00
Position: Lying 08/09/24 15:00
MAP (cuff-Charo Monitor) 93 08/09/24 02:00
SaO2 95 08/09/24 15:00
Nasal Cannula flow liters per minute 2 08/09/24 15:00
Oxygen Mode of Delivery Room air 08/08/24 22:22
Other oxygen comment while talking on phone 08/09/24 10:30
Can the patient verbally communicate their pain? Yes 08/09/24 09:34
Actual Weight 97.069 kg 08/09/24 03:28
Body Mass Index (BMI) 27.5 08/09/24 03:28
Labs
08/09/24 07:05
08/09/24 07:05
PT 15.4 Sec (11.4-14.6) H 08/08/24 22:46
APTT 34.4 Sec (23.4-35.0) 08/08/24 22:46
Troponin I Cancelled 08/09/24 01:45
Ptj-Q-Imxbamijehg Pept 215 pg/ml 08/08/24 22:47
Diagnostic Studies
US LLE 08/09: negative for DVT
Right thoracentesis: 60 cc of grossly bloody pleural fluid
Exam
General: Well Developed and Well Nourished
HEENT: Normocephalic, Moist Mucous Membranes, PERRLA and Other (left conjuntivitis)
Neck: Trachea Midline
Respiratory: Other (decreased breath sounds B/L bases)
Cardiac: S1/S2 and Regular Rhythm
GI: Soft, Non Tender, Non Distended and Normal Bowel Sounds
Rectal: Deferred by Provider
Skin: Warm and Dry
Neuro: AO x 3 and No Motor Deficits
Extremities: Lower Level Edema (B/L tibial edema L>R)
Lymph: No Lymphadenopathy
Psych: Calm
Assessment / Plan
-
59 year old male admitted with recurrent pleural effusions requiring thoracenteses. Last episode 2 months ago.
- surgeon to review imaging and discuss case with customer complaint clerk/primary team.
--- NOTE | 2024-08-09 17:27 | CM ---
Met with patient to obtain information for assessment. Patient stated that he lives with his sister in law and brother in a two story home with no steps to enter. He described himself as independent with all of his ADLs, personal care, dressing and
bathing. He can do water chemist, cook, clean and do laundry. He drives and can get to his appointments and do all of his own shopping. He has not had VN in the past or been to a SNF.
Patient has a prescription plan and uses, [facility] in [place] for all of his medications.
His PCP is, Abimbola Wright.
Plan: Case management will continue to follow and assist with discharge planning. Watch for needs.
[2024-08-09] MEDS: LOVENOX 40 MG SC (18:49)
[2024-08-09] MEDS: LIPITOR 20 MG PO (22:01)
[2024-08-10 07:19] VITALS: BP 144/76
[2024-08-10 07:40] LABS: ALT (SGPT) 16 U/L (0-50); AST (SGOT) 17 U/L (17-59); Albumin 2.9 g/dl (3.5-5.0); Alkaline Phosphatase 89 U/L (38-126); Blood Urea Nitrogen 19 mg/dl (9-20); Calcium 8.7 mg/dl (8.4-10.2); Carbon Dioxide 29 mmol/L (22-30); Chloride 105 mmol/L (98-107); Estimated Creatinine Clearance 116 ml/min; Glucose 79 mg/dl (70-99); Potassium 3.9 mmol/L (3.5-5.1); Sodium 140 mmol/L (135-145); Total Bilirubin 0.8 mg/dl (0.2-1.3); Total Protein 5.6 g/dl (6.3-8.2); eGFR > 60.00
[2024-08-10 07:48] LABS: Hematocrit 41.7 % (39.0-52.0); Hemoglobin 14.3 g/dL (13.0-18.0); Mean Corp Hgb Conc. 34.3 g/dL (33.0-37.0); Mean Corpuscular Hgb 33.2 pg (27.0-31.0); Mean Corpuscular Volume 96.8 fL (80.0-94.0); Mean Platelet Volume 10.2 fL (7.4-10.4); Platelet Count 262 10^3/uL (130-400); Red Blood Cell Count 4.31 10^6/uL (4.70-6.10); Red Cell Dist. Width 11.5 % (11.5-14.5); White Blood Cell Count 6.2 10^3/uL (4.8-10.8)
--- NOTE | 2024-08-10 08:17 | W.PN.HOSP.TC ---
Today's Communication/Plan
-
Assessment / Plan
Assessment / Plan
59 male history of DM history of fusion presents with worsening shortness of breath dyspnea on exertion over the last few days and reports having flulike symptoms few days prior.
Should be noted has a history of recurrent/repeated need for thoracentesis. Thoracentesis previously showed exudative pleural effusion with negative malignant cells positive for inflammatory cells.
NAD
Scleral Anicteric
MMM
No JVD
Diminished breath sounds worse on the right than the left however also diminished. Otherwise without crackles or rhonchi
RRR, S1/S2
Soft, NT, ND, BS+
Warm, Dry
Nails salena toe nails appear to be mycotic with his left hand thumb nail being mycotic as well
AAOx3
Calm
Acute hypoxemic respiratory failure with unclear etiology though likely related to recurrent pleural effusion.
S/p thoracentesis, bloody color, 60 cc removed, exudative in nature with pH of 7.1 and lymphocytes which are likely related to chronicity rather than autoimmune condition
-Spoke with on-call pulmonary this morning. Reviewed case that they did bring up potential yellow nasal syndrome however unlikely due to chronicity
Per pulmonary will likely require thoracoscopy with pleural biopsy
CT chest pending
Pulmonary following
Cardiothoracic surgery consulted and pending
Follow-up fluid analysis cytology Gram stain
Maintain SpO2 greater than 92%
Conjunctivitis given mild URI symptoms suspect viral
Topical optic drops for comfort
Next COPD without evidence of acute bronchospasm
Continue ICS/LABA. Decongestant
COPD
Without evidence of acute bronchospasm
Continue ICS/LABA
Anticipated Discharge: > 48 hours
Subjective/Interval History
-
Date of Service: August 10, 2024
Seen and examined. Is continues to feel short of breath. However when I did go into see him he was fast asleep sleeping on his left lateral decubitus position.
Easily awakened by name without evidence of conversational dyspnea
Objective Data
-
Labs:
Laboratory Results
08/10/24
06:47
WBC 6.2
Hgb 14.3
Hct 41.7
Plt Count 262
Sodium 140
Potassium 3.9
Chloride 105
Carbon Dioxide 29
BUN 19
Creatinine 0.8
Glucose 79
Calcium 8.7
Total Bilirubin 0.8
AST 17
ALT 16
Alkaline Phosphatase 89
Vital Signs:
Vital Signs
Temp Pulse Resp BP Pulse Ox
98.2 F 86 18 144/76 93
08/10/24 07:19 08/10/24 07:19 08/10/24 07:19 08/10/24 07:19 08/10/24 07:19
I&O
08/09/24 08/10/24 08/11/24
06:59 06:59 06:59
Intake Total 1000 / 1000
Balance 1000 / 1000
[2024-08-10] MEDS: ADVAIR HFA 115/21 MCG INHALER 1 PUFF INH (08:29)
[2024-08-10] MEDS: POLYTRIM OPHTHALMIC SOLUTION 2 DROP BOTH EYES ×3 (08:31→21:21)
[2024-08-10] MEDS: LASIX 40 MG PO (08:33)
[2024-08-10] MEDS: MUCINEX 600 MG PO ×2 (08:34→20:08)
[2024-08-10 08:52] LABS: Absolute Neutrophils -Man Diff 4.4 10^3/uL (1.4-6.5); Band Neutrophils 12 % (0-3); Lymphocytes 8 % (20-51); Segmented Neutrophils 59 % (42-75)
[2024-08-10 08:53] LABS: Eosinophils 1 % (0-6); Monocytes 19 % (2-9); Normal RBC Morphology Yes; Platelets Checked Yes; Total Cells Counted 100
--- NOTE | 2024-08-10 15:00 | W.PN.PUL3 ---
Today's Communication / Plan
-
- Hold inhalers
- Solumedrol 80 mg IV stat then 40 mg IV BID
- Start Duoneb qid, Budesonide and Montelukast
- Supplemental O2 to keep sats 90-92%
Assessment
-
Patient is a 59-year-old with past medical history significant for emphysema, chronic lower extremity edema, history of recurrent pleural effusions presents to the emergency department with worsening shortness of breath and dyspnea on exertion over
the last few days. Patient reports touch of flulike symptoms few days ago. He does have R eye conjunctivitis. Patient was admitted in May with pleural effusion status post thoracentesis showing exudative pleural effusion with negative malignant
cells and positive inflammatory cells. CXR showing recurrence of RLL effusion. Underwent tap by IR this admission, with only extraction of 60cc of fluid. We are consulted for evaluation 08/09/24.
Recurrent pleural effusions, RLL s/p thora
Suspect empyema
History of multiple thoracentesis, exudative w/ negative culture/cytology
SOB
Right eye conjunctivitis
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
Diarrhea with hypokalemia
HLD
Prior h/o smoking cocaine ([id number])-could explain pulmonary findings.
Plan
#1. Acute hypoxic respiratory failure.
- Due to bronchospasm, suspect Asthma exacerbation
- Supplemental O2 to keep saturation 90 to 92%
#2. Hyperactive airway disease with exacerbation, suspect Asthma exacerbation.
- Eosinophil count up to 400 in the past, patient's father had asthma, patient on Advair BID at home, no h/o smoking, obstructive pattern on PFTs
- Solumedrol 80 mg IV stat followed by 40 mg BID
- Start Duoneb QID, Pulmicort BID and add Montelukast at night
- PRN Albuterol in addition
#3. Right greater than left pleural effusion, chronic, recurrent (Exudative)
- Multiple thoracentesis since 2018, exudative effusion, primarily lymphocytosis again suggestive of chronicity
- s/p Thoracentesis 60 ml removed 08/09, exudative, 66% Mononuclear cells, similar to prior fluid analysis in 05/2024
- Patient appears to have trapped lung with bilateral thickened pleural rind noted on CT scan. Current effusions appear to be unchanged from his May CT scan, I do not think his current exacerbation of symptoms are related to pleural effusion.
- Prior history of hydropneumothorax/pneumo ex vacuo due to trapped lung.
- Extensive workup in the past including right heart cath/left heart cath, bronchoscopy, pleural fluid cultures, cytology as well as connective tissue disease workup has been negative
- Regarding pleural effusions, eventually he will need a pleural biopsy for further evaluation with possible decortication/pleurodesis. Thoracic surgery service consulted. Current worsening of symptoms does not appear to be related to symptomatic
pleural effusion.
Total time spent on this consultation/encounter __52__ minutes which includes review of history, physical exam, medications, laboratory data, personal review of imaging, extensive review of outpatient records, discussion with care team and
respiratory therapy.
Diagnostic Data
CT Chest 07/2024: Small to moderate size loculated right pleural effusion, slightly more complex but without significant change in volume in comparison to prior CT.
Small loculated left pleural effusion, slightly increased in comparison to prior study.
Likely small pericardial effusion.
Additional parenchymal, pleural and mediastinal findings without significant change, as detailed above.
CXR 08/09/24- Lungs: Bilateral pleural effusions, right greater than left are again seen as well is bilateral parenchymal opacification. No findings to confirm pneumothorax.
06/10/24- Status post right thoracentesis. No evidence for pneumothorax.
CT CHEST 06/09/24- Bilateral pleural effusions, right greater than left, with mild loculation. Bilateral thickened peripheral pleural rinds, most likely chronic inflammatory rinds. Malignant pleural effusion is not excluded. There is of parenchymal
opacity with air bronchograms within both lower lobes, most likely chronic atelectasis. Focal area of confluent parenchymal opacity with air bronchograms in the periphery of the right middle lobe, probably scarring/chronic atelectasis.
Multiple small nodular densities throughout both lungs, slightly larger in the right upper lobe. This would suggest small airway pneumonitis, chronicity uncertain. See above discussion.
Vascularity is felt to likely not be actively congested based on CT findings, but please correlate clinically.
Coronary artery calcifications are present. Please correlate with symptoms of and risk factors for coronary artery disease, with further workup as clinically appropriate.
Small to moderate central hiatal hernia.
ECHO
PFT
Reports and relevant images were personally reviewed.
Subjective Data
-
Date of Service:
Date of Service: August 10, 2024
Subjective:
Patient sitting in bed coughing, wheezing, requiring supplemental oxygen.
Review of Systems
Genitourinary: Other (All 14 systems reviewed and negative except as stated above in the history of present illness. Pertinent positives are upper respiratory congestion, cough, wheezing and shortness of breath.)
Objective Data
Data Reviewed
Vital Signs / I&O / Oxygen:
Vital Signs
Temp Pulse Resp BP Pulse Ox
98.2 F 102 20 144/76 95
08/10/24 07:19 08/10/24 08:32 08/10/24 08:32 08/10/24 07:19 08/10/24 08:32
Intake and Output
08/09/24 08/10/24 08/11/24
06:59 06:59 06:59
Intake Total 1000 / 1000
Balance 1000 / 1000
SaO2 95
Nasal Cannula flow liters per 2
minute
Physical Exam
General: Comfortable
HEENT: Normocephalic
Cardiovascular: S1-S2
Respiratory: Wheeze and Rhonchi
GI: Soft and Non Distended
Neurology: Awake and Alert
Skin: Warm
Labs/Micro/Reports
Lab Data
08/10/24 06:47
08/10/24 06:47
Microbiology
08/09/24 16:20 Sputum Respiratory Culture - Preliminary
08/09/24 16:20 Sputum Gram Stain - Preliminary
08/09/24 09:38 Pleural Fluid Body Fluid Culture - Preliminary
No Growth After 18-24 Hours
08/09/24 09:38 Pleural Fluid Gram Stain - Preliminary
08/09/24 04:47 Nose MRSA Screen - Final
No Methicillin Resistant Staphylococcus aureus isolated.
08/08/24 23:16 Blood/Venous Blood Culture - Preliminary
No Growth in 24 hours- Final report to follow
08/08/24 23:16 Nasal Swab Influenza Types A & B (BRUNO) - Final
Negative for Influenza A & B, NAAT
Negative results must be combined with clinical observations
and patient history.
Nucleic Acid Amplification test (NAAT)performed on the
[employer] platform.
[2024-08-10 15:23] VITALS: BP 169/93
[2024-08-10] MEDS: DUONEB 3 ML INH ×2 (15:28→20:08)
[2024-08-10] MEDS: PULMICORT 0.5 MG INH (15:28)
[2024-08-10] MEDS: TYLENOL 650 MG PO (15:55)
[2024-08-10] MEDS: SOLU-MEDROL PF 80 MG IV (15:58)
[2024-08-10] MEDS: FLUSH (NSS) 2 FLUSH IV (15:59)
[2024-08-10] MEDS: LOVENOX 40 MG SC (18:45)
[2024-08-10] MEDS: POLYTRIM OPHTHALMIC SOLUTION 1 DROP BOTH EYES (18:48)
[2024-08-10] MEDS: SINGULAIR 10 MG PO (18:48)
[2024-08-10] MEDS: LIPITOR 20 MG PO (21:21)
[2024-08-10 23:10] VITALS: BP 128/64
[2024-08-11 06:23] LABS: Blood Urea Nitrogen 20 mg/dl (9-20); Calcium 9.1 mg/dl (8.4-10.2); Carbon Dioxide 32 mmol/L (22-30); Chloride 105 mmol/L (98-107); Estimated Creatinine Clearance > 125 ml/min; Glucose 166 mg/dl (70-99); Potassium 4.4 mmol/L (3.5-5.1); Sodium 143 mmol/L (135-145); eGFR > 60.00
[2024-08-11 07:00] VITALS: BP 124/72
[2024-08-11] MEDS: PULMICORT 0.5 MG INH ×2 (08:26→20:13)
[2024-08-11] MEDS: DUONEB 3 ML INH ×4 (08:26→20:13)
[2024-08-11] MEDS: MUCINEX 600 MG PO ×2 (09:26→19:40)
[2024-08-11] MEDS: LASIX 40 MG PO (09:27)
[2024-08-11] MEDS: SOLU-MEDROL PF 40 MG IV ×2 (09:31→19:40)
[2024-08-11] MEDS: POLYTRIM OPHTHALMIC SOLUTION 1 DROP BOTH EYES (09:32)
--- NOTE | 2024-08-11 09:33 | W.PN.HOSP.TC ---
Today's Communication/Plan
-
Assessment / Plan
Assessment / Plan
59 male history of DM history of fusion presents with worsening shortness of breath dyspnea on exertion over the last few days and reports having flulike symptoms few days prior.
Should be noted has a history of recurrent/repeated need for thoracentesis. Thoracentesis previously showed exudative pleural effusion with negative malignant cells positive for inflammatory cells.
NAD
Scleral Anicteric
MMM
No JVD
Diminished breath sounds worse on the right than the left however also diminished. Otherwise without crackles or rhonchi
RRR, S1/S2
Soft, NT, ND, BS+
Warm, Dry
Nails [place] toe nails appear to be mycotic with his left hand thumb nail being mycotic as well
Left lower extremity swelling little worse than right lower extremity
AAOx3
Calm
Acute hypoxemic respiratory failure with unclear etiology though likely related to recurrent loculated pleural effusion.
S/p thoracentesis, bloody color, 60 cc removed, exudative in nature with pH of 7.1 and lymphocytes which are likely related to chronicity rather than autoimmune condition
-Spoke with on-call pulmonary this morning. Reviewed case that they did bring up potential yellow nasal syndrome however unlikely due to chronicity
Per pulmonary will likely require thoracoscopy with pleural biopsy
CT chest completed and reviewed
Pulmonary following
Cardiothoracic surgery consulted and pending
Follow-up fluid analysis cytology Gram stain
Maintain SpO2 greater than 92%
Was evaluated by pulmonary
Believed to be asthma exacerbation started on steroids and nebulizer treatment along with montelukast
Conjunctivitis given mild URI symptoms suspect viral
Topical optic drops for comfort
Next COPD without evidence of acute bronchospasm
Continue ICS/LABA. Decongestant
Pericardial effusion noted on chest CT
2D echocardiogram
Without evidence of tamponade concern at this time as hemodynamically stable
COPD
Without evidence of acute bronchospasm
Continue ICS/LABA
Left lower extremity swelling
DVT study completed without evidence of DVT
Anticipated Discharge: 24 - 48 hours
Subjective/Interval History
-
Date of Service: August 11, 2024
Seen and examined. No new complaints. No acute overnight events.
States that he is feeling better breathing a little bit easier after starting steroids and nebs
Objective Data
-
Labs:
Laboratory Results
08/11/24
04:24
Sodium 143
Potassium 4.4
Chloride 105
Carbon Dioxide 32 H
BUN 20
Creatinine 0.6 L
Glucose 166 H
Calcium 9.1
Vital Signs:
Vital Signs
Temp Pulse Resp BP Pulse Ox
97.7 F 83 18 124/72 97
08/11/24 07:00 08/11/24 08:29 08/11/24 08:29 08/11/24 07:00 08/11/24 08:29
I&O
08/10/24 08/11/24 08/12/24
06:59 06:59 06:59
Intake Total 1000 / 1000 1540 / 1540
Balance 1000 / 1000 1540 / 1540
--- NOTE | 2024-08-11 12:14 | W.PN.PUL3 ---
Today's Communication / Plan
-
- Continue IV steroids for today
- Anticipate discharge 08/12 on tapering dose of steroids, higher dose of inhaled ICS
- Will arrange outpatient follow-up with pulmonary clinic
Assessment
-
Patient is a 59-year-old with past medical history significant for emphysema, chronic lower extremity edema, history of recurrent pleural effusions presents to the emergency department with worsening shortness of breath and dyspnea on exertion over
the last few days. Patient reports touch of flulike symptoms few days ago. He does have R eye conjunctivitis. Patient was admitted in May with pleural effusion status post thoracentesis showing exudative pleural effusion with negative malignant
cells and positive inflammatory cells. CXR showing recurrence of RLL effusion. Underwent tap by IR this admission, with only extraction of 60cc of fluid. We are consulted for evaluation 08/09/24.
Recurrent pleural effusions, RLL s/p thora
Suspect empyema
History of multiple thoracentesis, exudative w/ negative culture/cytology
SOB
Right eye conjunctivitis
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
Diarrhea with hypokalemia
HLD
Prior h/o smoking cocaine ([id number])-could explain pulmonary findings.
Plan
#1. Acute hypoxic respiratory failure.
- Due to bronchospasm, suspect Asthma exacerbation
- Supplemental O2 to keep saturation 90 to 92%
#2. Hyperactive airway disease with exacerbation, suspect Asthma exacerbation.
- Clinically improving.
- Eosinophil count up to 400 in the past, patient's father had asthma, patient on Advair BID at home, no h/o smoking, obstructive pattern on PFTs
- Continue Solu-Medrol 40 mg IV twice daily for today
- Continue Duoneb QID, Pulmicort BID and Montelukast at night
- PRN Albuterol in addition
#3. Right greater than left pleural effusion, chronic, recurrent (Exudative)
- Multiple thoracentesis since 2018, exudative effusion, primarily lymphocytosis again suggestive of chronicity
- s/p Thoracentesis 60 ml removed 08/09, exudative, 66% Mononuclear cells, similar to prior fluid analysis in 05/2024
- Patient appears to have trapped lung with bilateral thickened pleural rind noted on CT scan. Current effusions appear to be unchanged from his May CT scan, I do not think his current exacerbation of symptoms are related to pleural effusion.
- Prior history of hydropneumothorax/pneumo ex vacuo due to trapped lung.
- Extensive workup in the past including right heart cath/left heart cath, bronchoscopy, pleural fluid cultures, cytology as well as connective tissue disease workup has been negative
- Regarding pleural effusions, eventually he will need a pleural biopsy for further evaluation with possible decortication/pleurodesis. Thoracic surgery service consulted. Current worsening of symptoms does not appear to be related to symptomatic
pleural effusion.
Total time spent on this consultation/encounter __45__ minutes which includes review of history, physical exam, medications, laboratory data, personal review of imaging, extensive review of outpatient records, discussion with care team and
respiratory therapy.
Diagnostic Data
CT Chest 07/2024: Small to moderate size loculated right pleural effusion, slightly more complex but without significant change in volume in comparison to prior CT.
Small loculated left pleural effusion, slightly increased in comparison to prior study.
Likely small pericardial effusion.
Additional parenchymal, pleural and mediastinal findings without significant change, as detailed above.
CXR 08/09/24- Lungs: Bilateral pleural effusions, right greater than left are again seen as well is bilateral parenchymal opacification. No findings to confirm pneumothorax.
06/10/24- Status post right thoracentesis. No evidence for pneumothorax.
CT CHEST 06/09/24- Bilateral pleural effusions, right greater than left, with mild loculation. Bilateral thickened peripheral pleural rinds, most likely chronic inflammatory rinds. Malignant pleural effusion is not excluded. There is of parenchymal
opacity with air bronchograms within both lower lobes, most likely chronic atelectasis. Focal area of confluent parenchymal opacity with air bronchograms in the periphery of the right middle lobe, probably scarring/chronic atelectasis.
Multiple small nodular densities throughout both lungs, slightly larger in the right upper lobe. This would suggest small airway pneumonitis, chronicity uncertain. See above discussion.
Vascularity is felt to likely not be actively congested based on CT findings, but please correlate clinically.
Coronary artery calcifications are present. Please correlate with symptoms of and risk factors for coronary artery disease, with further workup as clinically appropriate.
Small to moderate central hiatal hernia.
ECHO
PFT
Reports and relevant images were personally reviewed.
Subjective Data
-
Date of Service:
Date of Service: August 11, 2024
Subjective:
Patient appears little more comfortable today. No active wheezing this morning
Review of Systems
Genitourinary: Other (All 14 systems reviewed and negative except as stated above in the history of present illness.)
Objective Data
Data Reviewed
Vital Signs / I&O / Oxygen:
Vital Signs
Temp Pulse Resp BP Pulse Ox
97.7 F 82 18 124/72 97
08/11/24 07:00 08/11/24 11:44 08/11/24 11:44 08/11/24 07:00 08/11/24 11:44
Intake and Output
08/10/24 08/11/24 08/12/24
06:59 06:59 06:59
Intake Total 1000 / 1000 1540 / 1540
Balance 1000 / 1000 1540 / 1540
SaO2 97
Nasal Cannula flow liters per 4
minute
Physical Exam
General: Comfortable
HEENT: Normocephalic
Cardiovascular: S1-S2
Respiratory: Clear and Wheeze (Wheezing nearly resolved)
GI: Soft and Non Distended
Neurology: Awake and Alert
Skin: Warm
Labs/Micro/Reports
Lab Data
08/10/24 06:47
08/11/24 04:24
Microbiology
08/09/24 09:38 Pleural Fluid Body Fluid Culture - Preliminary
No Growth After 48 Hours
08/09/24 09:38 Pleural Fluid Gram Stain - Preliminary
08/08/24 23:16 Blood/Venous Blood Culture - Preliminary
No Growth in 48 hours- Final report to follow
08/09/24 16:20 Sputum Respiratory Culture - Preliminary
08/09/24 16:20 Sputum Gram Stain - Preliminary
08/09/24 04:47 Nose MRSA Screen - Final
No Methicillin Resistant Staphylococcus aureus isolated.
08/08/24 23:16 Nasal Swab Influenza Types A & B (BRUNO) - Final
Negative for Influenza A & B, NAAT
Negative results must be combined with clinical observations
and patient history.
Nucleic Acid Amplification test (NAAT)performed on the
[employer] platform.
[2024-08-11] MEDS: POLYTRIM OPHTHALMIC SOLUTION 2 DROP BOTH EYES ×3 (13:02→21:40)
[2024-08-11 15:00] VITALS: BP 131/73
[2024-08-11] MEDS: LOVENOX 40 MG SC (17:35)
[2024-08-11] MEDS: SINGULAIR 10 MG PO (17:35)
[2024-08-11] MEDS: LIPITOR 20 MG PO (21:40)
[2024-08-11 22:55] VITALS: BP 144/85
[2024-08-12] MEDS: PULMICORT 0.5 MG INH ×2 (07:32→19:51)
[2024-08-12] MEDS: DUONEB 3 ML INH ×4 (07:32→18:41)
[2024-08-12 07:46] VITALS: BP 125/74
--- NOTE | 2024-08-12 08:22 | W.PN.HOSP.TC ---
Today's Communication/Plan
-
Start antibiotic, Unasyn for H. influenzae positive sputum culture
ESR, CRP
Echocardiogram in the morning
Assessment / Plan
Assessment / Plan
Impression
Patient is a 59 male history of DM history of recurrent pleural effusions presents with worsening shortness of breath dyspnea on exertion over the last few days and reports having flulike symptoms few days prior. S/p right-sided thoracocentesis, 60
mL fluid drained,Exudative with 66% mononuclear cells, similar to prior fluid analysis in 06/11.
Assessment/plan
#Acute hypoxemic respiratory failure secondary to likely recurrent loculated pleural effusion
S/p thoracentesis, bloody color, 60 cc removed, exudative in nature with pH of 7.1 and lymphocytes which are likely related to chronicity rather than autoimmune condition
Patient appears to have trapped lung with bilateral thickened pleural rind noted on CT scan-Pulmonology consult appreciated-likely require thoracoscopy with pleural biopsy in future
Extensive workup in the past including right heart catheter/left heart cath, bronchoscopy, pleural fluid cultures, HIV testing, autoimmune workup--inconclusive
Start antibiotic, Unasyn for H. influenzae positive sputum culture
ESR, CRP
#Acute exacerbation of asthma
On examination bilateral chest wheeze consistent with asthma exacerbation
Supplemental oxygen to maintain saturation 90 to 92%
As per pulmonology, worsening dyspnea secondary to asthma exacerbation rather than the loculated pleural effusion as the pleural effusion remains unchanged as compared to the last CT scan
Started Solu-Medrol 40 mg IV twice daily as per pulmonology-advised steroid taper on discharge
Continue DuoNeb 4 times daily, Pulmicort twice daily and montelukast along with as needed albuterol nebs
Follow-up with pulmonology on outpatient basis
#Conjunctivitis given mild URI symptoms suspect viral
Topical optic drops for comfort
Continue ICS/LABA. Decongestant
#Pericardial effusion noted on chest CT
2D echocardiogram
Without evidence of tamponade concern at this time as hemodynamically stable
#Left lower extremity swelling
DVT study completed without evidence of DVT
Anticipated Discharge: 24 - 48 hours
Subjective/Interval History
-
Date of Service: August 12, 2024
Still has some cough and mucus
Objective Data
-
Vital Signs:
Vital Signs
Temp Pulse Resp BP Pulse Ox
98.4 F 58 18 125/74 95
08/12/24 07:46 08/12/24 07:46 08/12/24 07:46 08/12/24 07:46 08/12/24 07:46
I&O
08/11/24 08/12/24 08/13/24
06:59 06:59 06:59
Intake Total 1540 / 1540
Balance 1540 / 1540
Review of Systems
-
All other systems: Reviewed and negative
Physical Exam
-
General: No Apparent Distress
HEENT: Moist Mucous Membranes and Anicteric
Respiratory: Decreased Breath Sounds
Cardiac: Regular Rhythm and S1/S2
GI: Soft, Nontender, Nondistended and Normal Bowel Sounds
Musculoskeletal: No Clubbing, No Cyanosis, Edema, Right Lower Extrem, Edema, Left Lower Extrem and Other (Toenails mycotic)
Skin: Warm and Dry
Neuro: Awake, Oriented and No Motor Deficits
Psych: Calm
[2024-08-12] MEDS: SOLU-MEDROL PF 40 MG IV ×2 (08:49→20:14)
[2024-08-12] MEDS: MUCINEX 600 MG PO ×2 (08:49→20:14)
[2024-08-12] MEDS: POLYTRIM OPHTHALMIC SOLUTION 2 DROP BOTH EYES ×4 (08:49→21:02)
[2024-08-12] MEDS: LASIX 40 MG PO (08:50)
--- NOTE | 2024-08-12 13:21 | W.PN.PUL3 ---
Today's Communication / Plan
-
- Agree with IV Unasyn
- Continue IV Solu-Medrol for today, tentative transition to prednisone in a.m.
- When discharging, patient should be switched to Advair 500 instead of 250 that he was taking at home
- Outpatient follow-up will be arranged with pulmonary clinic
Assessment
-
Patient is a 59-year-old with past medical history significant for emphysema, chronic lower extremity edema, history of recurrent pleural effusions presents to the emergency department with worsening shortness of breath and dyspnea on exertion over
the last few days. Patient reports touch of flulike symptoms few days ago. He does have R eye conjunctivitis. Patient was admitted in May with pleural effusion status post thoracentesis showing exudative pleural effusion with negative malignant
cells and positive inflammatory cells. CXR showing recurrence of RLL effusion. Underwent tap by IR this admission, with only extraction of 60cc of fluid. We are consulted for evaluation 08/09/24.
Recurrent pleural effusions, RLL s/p thora
Suspect empyema
History of multiple thoracentesis, exudative w/ negative culture/cytology
SOB
Right eye conjunctivitis
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
Diarrhea with hypokalemia
HLD
Prior h/o smoking cocaine ([id number])-could explain pulmonary findings.
Plan
#1. Acute hypoxic respiratory failure.
- Due to bronchospasm and acute bronchitis, suspect Asthma exacerbation
- Supplemental O2 to keep saturation 90 to 92%
#2. Hyperactive airway disease with exacerbation, suspect Asthma exacerbation.
- Clinically improving.
- Eosinophil count up to 400 in the past, patient's father had asthma, patient on Advair 250 BID at home, no h/o smoking, obstructive pattern on PFTs
- Continue Solu-Medrol 40 mg IV twice daily for now, likely transition to PO in AM.
- Continue Duoneb QID, Pulmicort BID
- PRN Albuterol in addition
#3. Acute bronchitis.
- Nodular densities throughout the lungs suggestive of diffuse small airway disease. H. influenzae noted on sputum culture
- Unasyn started per primary team, agree with antibiotics
- Continue steroids as ordered
#4. Right greater than left pleural effusion, chronic, recurrent (Exudative)
- Multiple thoracentesis since 2019, exudative effusion, primarily lymphocytosis again suggestive of chronicity
- s/p Thoracentesis 60 ml removed 08/09, exudative, 66% Mononuclear cells, similar to prior fluid analysis in 05/2024
- Patient appears to have trapped lung with bilateral thickened pleural rind noted on CT scan. Current effusions appear to be unchanged from his May CT scan, I do not think his current exacerbation of symptoms are related to pleural effusion.
- Prior history of hydropneumothorax/pneumo ex vacuo due to trapped lung.
- Extensive workup in the past including right heart cath/left heart cath, bronchoscopy, pleural fluid cultures, cytology as well as connective tissue disease workup has been negative
- Regarding pleural effusions, eventually he will need a pleural biopsy for further evaluation with possible decortication/pleurodesis. Thoracic surgery service consulted. Current worsening of symptoms does not appear to be related to symptomatic
pleural effusion.
Total time spent on this consultation/encounter __48__ minutes which includes review of history, physical exam, medications, laboratory data, personal review of imaging, extensive review of outpatient records, discussion with care team and
respiratory therapy.
Diagnostic Data
CT Chest 07/2024: Small to moderate size loculated right pleural effusion, slightly more complex but without significant change in volume in comparison to prior CT.
Small loculated left pleural effusion, slightly increased in comparison to prior study.
Likely small pericardial effusion.
Additional parenchymal, pleural and mediastinal findings without significant change, as detailed above.
CXR 08/09/24- Lungs: Bilateral pleural effusions, right greater than left are again seen as well is bilateral parenchymal opacification. No findings to confirm pneumothorax.
06/10/24- Status post right thoracentesis. No evidence for pneumothorax.
CT CHEST 06/09/24- Bilateral pleural effusions, right greater than left, with mild loculation. Bilateral thickened peripheral pleural rinds, most likely chronic inflammatory rinds. Malignant pleural effusion is not excluded. There is of parenchymal
opacity with air bronchograms within both lower lobes, most likely chronic atelectasis. Focal area of confluent parenchymal opacity with air bronchograms in the periphery of the right middle lobe, probably scarring/chronic atelectasis.
Multiple small nodular densities throughout both lungs, slightly larger in the right upper lobe. This would suggest small airway pneumonitis, chronicity uncertain. See above discussion.
Vascularity is felt to likely not be actively congested based on CT findings, but please correlate clinically.
Coronary artery calcifications are present. Please correlate with symptoms of and risk factors for coronary artery disease, with further workup as clinically appropriate.
Small to moderate central hiatal hernia.
ECHO
PFT
Reports and relevant images were personally reviewed.
Subjective Data
-
Date of Service:
Date of Service: August 12, 2024
Subjective:
Patient reports improving dyspnea however mild expectoration persists. Cough improving.
Review of Systems
Genitourinary: Other (All 14 systems reviewed and negative except as stated above in the history of present illness.)
Objective Data
Data Reviewed
Vital Signs / I&O / Oxygen:
Vital Signs
Temp Pulse Resp BP Pulse Ox
98.4 F 88 16 125/74 95
08/12/24 07:46 08/12/24 11:37 08/12/24 11:37 08/12/24 07:46 08/12/24 07:46
Intake and Output
08/11/24 08/12/24 08/13/24
06:59 06:59 06:59
Intake Total 1540 / 1540
Balance 1540 / 1540
SaO2 95
Nasal Cannula flow liters per 4
minute
Physical Exam
General: Comfortable
HEENT: Normocephalic
Cardiovascular: S1-S2
Respiratory: Clear and Wheeze (Wheezing nearly resolved)
GI: Soft and Non Distended
Neurology: Awake and Alert
Skin: Warm
Labs/Micro/Reports
Lab Data
08/10/24 06:47
08/11/24 04:24
Microbiology
08/09/24 09:38 Pleural Fluid Body Fluid Culture - Final
No Growth After 72 Hours
08/09/24 09:38 Pleural Fluid Gram Stain - Final
08/08/24 23:16 Blood/Venous Blood Culture - Preliminary
No Growth in 72 hours- Final report to follow
08/09/24 16:20 Sputum Respiratory Culture - Final
Haemophilus influenzae
08/09/24 16:20 Sputum Gram Stain - Final
08/09/24 04:47 Nose MRSA Screen - Final
No Methicillin Resistant Staphylococcus aureus isolated.
[2024-08-12 13:26] LABS: Erythrocyte Sed Rate 51 mm/hour (0-20)
[2024-08-12] MEDS: UNASYN IV ×2 (13:56→20:14)
--- NOTE | 2024-08-12 14:04 | W.PN.UPDATE ---
Update Note
Progress Note Update
Seen and examined by me independently in collaboration with the medical operations supervisor.
Lab data and imaging data reviewed.
Addendum as below :
Patient feeling improved with initiation of steroids.
No active bronchospasm.
Patient has haemophilus influenza in the sputum-start Unasyn.
Suspect his acute episode may be infectious in etiology. Watch progress with introduction of Unasyn and continue with current steroids and reevaluate tomorrow and if continued improvement discharge home.
Has chronic pleural effusion of unexplained etiology. Needs a pleural biopsy as outpatient.
ECHO pending in am for eval of small pericardial effusion noted on CT chest. Check inflammatory markers and consider Rheum eval as OP.
[2024-08-12 15:17] VITALS: BP 138/74
[2024-08-12] MEDS: LOVENOX 40 MG SC (18:07)
[2024-08-12] MEDS: LIPITOR 20 MG PO (21:02)
[2024-08-12 23:10] VITALS: BP 137/77
[2024-08-13] MEDS: UNASYN IV ×3 (01:46→13:19)
[2024-08-13 06:51] LABS: Hematocrit 41.5 % (39.0-52.0); Mean Corp Hgb Conc. 33.7 g/dL (33.0-37.0); Mean Corpuscular Hgb 32.6 pg (27.0-31.0); Mean Corpuscular Volume 96.5 fL (80.0-94.0); Mean Platelet Volume 10.1 fL (7.4-10.4); Platelet Count 341 10^3/uL (130-400); Red Cell Dist. Width 11.5 % (11.5-14.5); White Blood Cell Count 12.5 10^3/uL (4.8-10.8)
[2024-08-13 07:21] LABS: Blood Urea Nitrogen 23 mg/dl (9-20); Calcium 8.7 mg/dl (8.4-10.2); Carbon Dioxide 33 mmol/L (22-30); Chloride 108 mmol/L (98-107); Estimated Creatinine Clearance > 125 ml/min; Glucose 176 mg/dl (70-99); Potassium 4.4 mmol/L (3.5-5.1); Sodium 144 mmol/L (135-145); eGFR > 60.00
[2024-08-13 07:32] VITALS: BP 141/80
[2024-08-13] MEDS: SOLU-MEDROL PF 40 MG IV (07:32)
[2024-08-13] MEDS: MUCINEX 600 MG PO (07:32)
[2024-08-13] MEDS: LASIX 40 MG PO (07:35)
[2024-08-13] MEDS: POLYTRIM OPHTHALMIC SOLUTION 2 DROP BOTH EYES ×2 (07:36→12:36)
[2024-08-13] MEDS: PULMICORT 0.5 MG INH (07:38)
[2024-08-13] MEDS: DUONEB 3 ML INH ×3 (07:38→15:49)
--- NOTE | 2024-08-13 07:49 | W.PN.HOSP.TC ---
Addendum entered and electronically signed by Vasu aJved MD 08/13/24 13:49:
Seen and examined by me independently in collaboration with the medical assisting instructor.
Lab data and imaging data reviewed.
Addendum as below :
Improved respiratory status. Denies much of cough. No shortness of breath or chest pain. Off of oxygen. No active bronchospasm. Decreased breath sounds in the right lung base. No added sounds.
Echocardiogram without pericardial effusion. Elevated inflammatory markers noted-patient advised to finish steroids and antibiotics for asthma flare and haemophilus influenza infection and repeat inflammatory markers and if still high for
outpatient rheumatology workup.
He will follow-up with pulmonary as outpatient for unexplained recurrent pleural effusions.
Total time of discharge 32 minutes
Original Note:
Today's Communication/Plan
-
Echocardiography
Room evaluation on outpatient basis
Pleural biopsy on outpatient basis
Transition to oral antibiotic, complete 7-day course
Transition to oral prednisone 30 mg, taper by 10 mg every 3 days till off
Set up home nebulizer machine. DuoNebs as needed
Assessment / Plan
Assessment / Plan
Impression
Patient is a 59 male history of DM history of recurrent pleural effusions presents with worsening shortness of breath dyspnea on exertion over the last few days and reports having flulike symptoms few days prior. S/p right-sided thoracocentesis, 60
mL fluid drained,Exudative with 66% mononuclear cells, similar to prior fluid analysis in 06/11.
Assessment/plan
#Acute hypoxemic respiratory failure secondary to likely recurrent loculated pleural effusion
S/p thoracentesis, bloody color, 60 cc removed, exudative in nature with pH of 7.1 and lymphocytes which are likely related to chronicity rather than autoimmune condition
Patient appears to have trapped lung with bilateral thickened pleural rind noted on CT scan-Pulmonology consult appreciated-likely require thoracoscopy with pleural biopsy in future
Extensive workup in the past including right heart catheter/left heart cath, bronchoscopy, pleural fluid cultures, HIV testing, autoimmune workup--inconclusive
Start antibiotic, Unasyn for H. influenzae positive sputum culture
ESR, CRP raised
Could be an acute infectious process/flareup of an autoimmune condition
Pulmonary recs appreciated-Transition to oral antibiotic, complete 7-day course
Transition to oral prednisone 30 mg, taper by 10 mg every 3 days till off
Set up home nebulizer machine. DuoNebs as needed
#Acute exacerbation of asthma
On examination bilateral chest wheeze consistent with asthma exacerbation
Supplemental oxygen to maintain saturation 90 to 92%
As per pulmonology, worsening dyspnea secondary to asthma exacerbation rather than the loculated pleural effusion as the pleural effusion remains unchanged as compared to the last CT scan
Started Solu-Medrol 40 mg IV twice daily as per pulmonology-advised steroid taper on discharge
Continue DuoNeb 4 times daily, Pulmicort twice daily and montelukast along with as needed albuterol nebs
Follow-up with pulmonology on outpatient basis
#Conjunctivitis given mild URI symptoms suspect viral
Topical optic drops for comfort
Continue ICS/LABA. Decongestant
#Pericardial effusion noted on chest CT
2D echocardiogram today to rule out any tamponade/acute pathology
#Left lower extremity swelling
DVT study completed without evidence of DVT
Anticipated Discharge: Within 24 hours
Subjective/Interval History
-
Date of Service: August 13, 2024
Patient is feeling better with steroids, no wheezing, able to breathe on room air
Objective Data
-
Labs:
Laboratory Results
08/13/24
05:55
WBC 12.5 H
Hgb 14.0
Hct 41.5
Plt Count 341 D
Sodium 144
Potassium 4.4
Chloride 108 H
Carbon Dioxide 33 H
BUN 23 H
Creatinine 0.6 L
Glucose 176 H
Calcium 8.7
Vital Signs:
Vital Signs
Temp Pulse Resp BP Pulse Ox
97.7 F 69 16 145/80 95
08/13/24 07:32 08/13/24 07:42 08/13/24 07:42 08/13/24 07:35 08/13/24 07:42
I&O
08/12/24 08/13/24 08/14/24
06:59 06:59 06:59
Intake Total 480 / 480
Balance 480 / 480
Review of Systems
-
All other systems: Reviewed and negative
Physical Exam
-
General: No Apparent Distress
HEENT: Moist Mucous Membranes and Anicteric
Respiratory: Crackles (On left side) and Decreased Breath Sounds
Cardiac: Regular Rhythm and S1/S2
GI: Soft, Nontender, Nondistended and Normal Bowel Sounds
Musculoskeletal: No Clubbing, No Cyanosis and Other (Bilateral lower extremity pitting edema, left greater than right, toenails mycotic)
Neuro: Awake and Oriented
Psych: Calm
--- NOTE | 2024-08-13 08:11 | W.PN.UPDATE ---
Update Note
Progress Note Update
59-year-old with past medical history significant for emphysema, hx of smoking cocaine, chronic lower extremity edema, history of recurrent pleural effusions presents to the emergency department with worsening shortness of breath and dyspnea on
exertion over the last few days. Patient reports touch of flulike symptoms few days ago. He does have R eye conjunctivitis. Patient was admitted in May with pleural effusion status post thoracentesis showing exudative pleural effusion with
negative malignant cells and positive inflammatory cells. CXR showing recurrence of RLL effusion. Underwent tap by IR this admission, with only extraction of 60cc of fluid.
Dr. Chacon reviewed images. At this time we would recommend follow up in outpatient pulmonary clinic.
--- NOTE | 2024-08-13 10:13 | W.PN.PUL3 ---
Today's Communication / Plan
-
Transition to oral antibiotic, complete 7-day course
Transition to oral prednisone 30 mg, taper by 10 mg every 3 days till off
Set up home nebulizer machine. DuoNebs as needed
Continue Advair
Will require pulmonary follow-up in the short-term. Instructions left in chart
Disposition efforts
Assessment
-
Patient is a 59-year-old with past medical history significant for emphysema, chronic lower extremity edema, history of recurrent pleural effusions presents to the emergency department with worsening shortness of breath and dyspnea on exertion over
the last few days. Patient reports touch of flulike symptoms few days ago. He does have R eye conjunctivitis. Patient was admitted in May with pleural effusion status post thoracentesis showing exudative pleural effusion with negative malignant
cells and positive inflammatory cells. CXR showing recurrence of RLL effusion. Underwent tap by IR this admission, with only extraction of 60cc of fluid. We are consulted for evaluation 08/09/24.
Recurrent pleural effusions, RLL s/p thora
Suspect empyema
History of multiple thoracentesis, exudative w/ negative culture/cytology
SOB
Right eye conjunctivitis
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
Diarrhea with hypokalemia
HLD
Prior h/o smoking cocaine ([id number])-could explain pulmonary findings.
Plan
#1. Acute hypoxic respiratory failure.
- Due to bronchospasm and acute bronchitis, suspect Asthma exacerbation
- Supplemental O2 to keep saturation 90 to 92%
- Appears to be objectively and subjectively improved. Plan will be to continue/resume outpatient regimen of fluticasone salmeterol 1 puff twice a day
- The patient would benefit from pulmonary follow-up
#2. Hyperactive airway disease with exacerbation, suspect Asthma exacerbation.
- Clinically improving.
- Eosinophil count up to 400 in the past, patient's father had asthma, patient on Advair 250 BID at home, no h/o smoking, obstructive pattern on PFTs
- Continue Solu-Medrol 40 mg IV twice daily for now, likely transition to PO today, taper off in the next 7 to 10 days
- Continue Duoneb QID, Pulmicort BID. Would set up nebulizer machine at home if able, have DuoNebs available as needed. Can discontinue Pulmicort at time of discharge
- PRN Albuterol in addition
#3. Acute bronchitis.
- Nodular densities throughout the lungs suggestive of diffuse small airway disease. H. influenzae noted on sputum culture
- Unasyn started per primary team, agree with antibiotics, transition to oral regimen, complete 7-day course
- Continue steroids as ordered
#4. Right greater than left pleural effusion, chronic, recurrent (Exudative)
- Multiple thoracentesis since 2018, exudative effusion, primarily lymphocytosis again suggestive of chronicity
- s/p Thoracentesis 60 ml removed 08/09, exudative, 66% Mononuclear cells, similar to prior fluid analysis in 05/2024
- Patient appears to have trapped lung with bilateral thickened pleural rind noted on CT scan. Current effusions appear to be unchanged from his May CT scan, I do not think his current exacerbation of symptoms are related to pleural effusion.
- Prior history of hydropneumothorax/pneumo ex vacuo due to trapped lung.
- Extensive workup in the past including right heart cath/left heart cath, bronchoscopy, pleural fluid cultures, cytology as well as connective tissue disease workup has been negative
- Regarding pleural effusions, eventually he will need a pleural biopsy for further evaluation with possible decortication/pleurodesis. Thoracic surgery service consulted. Current worsening of symptoms does not appear to be related to symptomatic
pleural effusion.
- Given findings, would recommend pulmonary follow-up. This can be worked up as an outpatient. Consider outpatient PET scan, repeat bronchoscopy, possible pleuroscopy with pleural biopsy. Reviewed possibility of infection, inflammation and occult
malignancy. Patient agreeable to follow-up as outpatient. Information left in chart
Disposition efforts
Diagnostic Data
CT Chest 07/2024: Small to moderate size loculated right pleural effusion, slightly more complex but without significant change in volume in comparison to prior CT.
Small loculated left pleural effusion, slightly increased in comparison to prior study.
Likely small pericardial effusion.
Additional parenchymal, pleural and mediastinal findings without significant change, as detailed above.
CXR 08/09/24- Lungs: Bilateral pleural effusions, right greater than left are again seen as well is bilateral parenchymal opacification. No findings to confirm pneumothorax.
06/10/24- Status post right thoracentesis. No evidence for pneumothorax.
CT CHEST 06/09/24- Bilateral pleural effusions, right greater than left, with mild loculation. Bilateral thickened peripheral pleural rinds, most likely chronic inflammatory rinds. Malignant pleural effusion is not excluded. There is of parenchymal
opacity with air bronchograms within both lower lobes, most likely chronic atelectasis. Focal area of confluent parenchymal opacity with air bronchograms in the periphery of the right middle lobe, probably scarring/chronic atelectasis.
Multiple small nodular densities throughout both lungs, slightly larger in the right upper lobe. This would suggest small airway pneumonitis, chronicity uncertain. See above discussion.
Vascularity is felt to likely not be actively congested based on CT findings, but please correlate clinically.
Coronary artery calcifications are present. Please correlate with symptoms of and risk factors for coronary artery disease, with further workup as clinically appropriate.
Small to moderate central hiatal hernia.
ECHO
PFT
Reports and relevant images were personally reviewed.
Subjective Data
-
Date of Service:
Date of Service: August 13, 2024
Subjective:
Patient is feeling better. Denies significant cough, shortness of breath, chest pain, pleurisy. Mild sinus congestion noted. Ambulating without difficulty, appears to be in good spirits
Objective Data
Data Reviewed
Vital Signs / I&O / Oxygen:
Vital Signs
Temp Pulse Resp BP Pulse Ox
97.7 F 69 16 145/80 95
08/13/24 07:32 08/13/24 07:42 08/13/24 07:42 08/13/24 07:35 08/13/24 07:42
Intake and Output
08/12/24 08/13/24 08/14/24
06:59 06:59 06:59
Intake Total 480 / 480
Balance 480 / 480
SaO2 95
Nasal Cannula flow liters per 2
minute
Physical Exam
General: Comfortable
HEENT: Normocephalic
Cardiovascular: S1-S2, Regular Rhythm and Murmur (n)
Respiratory: Clear, Wheeze (n), Crackles (n), Rhonchi (n), Non-Labored Respirations and Other (Decreased at base)
GI: Soft, Non Distended and Non Tender
Neurology: Awake, Alert and No Motor Deficits (Able to sit up without assistance)
Skin: Warm, Dry and Rash (n)
Labs/Micro/Reports
Lab Data
08/13/24 05:55
08/13/24 05:55
Microbiology
08/08/24 23:16 Blood/Venous Blood Culture - Preliminary
No Growth in 4 days- Final report to follow
08/09/24 09:38 Pleural Fluid Body Fluid Culture - Final
No Growth After 72 Hours
08/09/24 09:38 Pleural Fluid Gram Stain - Final
08/09/24 16:20 Sputum Respiratory Culture - Final
Haemophilus influenzae
08/09/24 16:20 Sputum Gram Stain - Final
08/09/24 04:47 Nose MRSA Screen - Final
No Methicillin Resistant Staphylococcus aureus isolated.
--- NOTE | 2024-08-13 11:45 | CM ---
manager completions reviewed patient's chart and Nebulizer ordered by pulmonary, script provided to patient and plan is for patient to go to [facility] in [place], near patient's home, home today.
Plan; Home today, patient to fiber picker nebulizer machine from [facility] in [place].
--- NOTE | 2024-08-13 12:39 | W.DCSUMMARY ---
Documented by User: Kar Peralta MD, Resident 08/13/24 13:32
Discharge Summary
Discharge Data
Date of Admission: 08/09/24
Date of Discharge: 08/13/24
-
Pending Results: No
Hospital Course
Discharging Physician :
Tello FARLEY,Vasu Lucas
Disposition :
Home
Primary care physician :
Abimbola Wright
Principal Discharge diagnosis :
Recurrent pleural effusion, s/p RLL thoracocentesis
Acute exacerbation of asthma-haemophilus influenza in sputum
Chronic Discharge diagnosis :
recurrent pleural effusions unclear�multiple thoracentesis starting 11/12/2018, 10/2019, 06/2023 Amrit Gomez
recurrent pneumonia
chronic bronchitis
insomnia
questionable CHF
HTN
HLD
prior crack cocaine smoker
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
Hospital Course :
Patient is a 59 male history of DM history of recurrent pleural effusions presents with worsening shortness of breath dyspnea on exertion over the last few days and reports having flulike symptoms few days prior. sis in 06/11.
#Acute hypoxemic respiratory failure secondary to likely recurrent loculated pleural effusion
S/p thoracentesis, bloody color, 60 cc removed, exudative in nature with pH of 7.1 and lymphocytes which are likely related to chronicity rather than autoimmune condition
Patient appears to have trapped lung with bilateral thickened pleural rind noted on CT scan-Pulmonology consult appreciated-likely require thoracoscopy with pleural biopsy in future
Extensive workup in the past including right heart catheter/left heart cath, bronchoscopy, pleural fluid cultures, HIV testing, autoimmune workup--inconclusive
ESR, CRP elevated, after treating the infection, repeat on outpatient basis and forward results to primary care physician
#Acute exacerbation of asthma
On examination bilateral chest wheeze consistent with asthma exacerbation
Supplemental oxygen to maintain saturation 90 to 92%
As per pulmonology, worsening dyspnea secondary to asthma exacerbation rather than the loculated pleural effusion as the pleural effusion remains unchanged as compared to the last CT scan
Started Solu-Medrol 40 mg IV twice daily-patient responded well
Transition to oral antibiotic, complete 7-day course
Transition to oral prednisone 30 mg, taper by 10 mg every 3 days till off
Set up home nebulizer machine. DuoNebs as needed
#Conjunctivitis given mild URI symptoms suspect viral
Continue topical optic drops for comfort
#Pericardial effusion noted on chest CT
2D echocardiogram-Without evidence of tamponade concern at this time
Hemodynamically stable
#Left lower extremity swelling
DVT study completed without evidence of DVT
Important imaging findings :
Echocardiography 08/13/2024
CONCLUSIONS
Normal left ventricular size, wall thickness and systolic function. No regional
wall motion abnormalities are seen. LV ejection fraction is 65%.
No significant valvular disease.
Normal pericardium without effusion.
No prior study available for comparison.
Chest x-ray 08/08/2024
IMPRESSION:
1. Moderate-sized right and small left pleural effusions.
2. Large bilateral lower lobe airspace consolidations which appear unchanged (chronic pneumonia or atelectasis/scarring).
3. Moderate reticulonodular interstitial disease in the upper lobes. Diagnostic possibilities are (1) atypical infection, (2) inflammatory disease (sarcoidosis), or (3) malignancy (metastatic disease).
4. Mild cardiomegaly.
Chest x-ray 08/09/2024
FINDINGS:
Lines and tubes: None.
Lungs: Bilateral pleural effusions, right greater than left are again seen as well is bilateral parenchymal opacification. No findings to confirm pneumothorax.
Heart: Cardiac and mediastinal contours are stable.
Osseous structures: Visualized osseous structures are grossly intact.
IMPRESSION:
No findings to confirm pneumothorax.
Peripheral vascular ultrasound 08/09/2024
IMPRESSION: No evidence of deep venous thrombosis of the left lower extremity.
Chest CT 08/10/2024
IMPRESSION:
Small to moderate size loculated right pleural effusion, slightly more complex but without significant change in volume in comparison to prior CT.
Small loculated left pleural effusion, slightly increased in comparison to prior study.
Likely small pericardial effusion.
Procedure findings :
PROCEDURE: Ultrasound-guided thoracentesis, Right.
INDICATION: Multiloculated right pleural effusion, shortness of breath .
TECHNIQUE: The risks and benefits of the procedure were discussed with the patient and informed, written consent was obtained. The patient was positioned upright. A timeout was performed to verify the patient's identity and the planned procedure.
The right posterior chest wall was prepped and draped in the normal sterile fashion. Maximum sterile barrier techniques were utilized, including wearing cap and mask, sterile gown, sterile gloves, and a large sterile sheet. Hand hygiene and 2%
chlorhexidine were also utilized.
Ultrasound was used to evaluate the pleural effusion and plan the approach, with access site marked on the skin. Local anesthesia was then administered subcutaneously with 10 mL of 2% lidocaine. Next, using real-time ultrasound guidance, a 5 [place]
Providajob centesis catheter was advanced into the pleural space using trocar technique at the marked site with direct visualization. Sample was aspirated, and the remainder of fluid was drained. All devices were then removed, and a dressing is applied.
The patient tolerated the procedure well with no immediate complication. A permanent image was stored.
IMPRESSION: Successful ultrasound-guided thoracentesis, yielding 60 cc of grossly bloody pleural fluid
Discharge Plan
-
Patient Disposition: Home (Routine Discharge)
Discharge Diagnosis/Procedures: Recurrent pleural effusions right lower lung s/p thoracocentesis unclear etiology ;acute exacerbation of possible asthma; Acute haemophilus influenzae upper respiratory infection
Condition: Fair
Diet: Regular
Activity: As tolerated
Driving Restrictions: As prior to admission
Bathing Restrictions: OK to Shower
Referrals:
Olayinka Washington MD [Active] - in two to four weeks
(pt has pulmonary appt with Dr. Chacon 09/03 with PFT
consider PET scan, possible bronchoscopy, possible pleuroscopy with pleural bx)
Abimbola Wright FI[employer]ULATOR [Family Provider] - in less than 1 week
Prescriptions:
New
furosemide 40 mg Tablet
40 mg PO DAILY 30 Days Qty: 30 1RF
guaifenesin 600 mg Tablet Extended Release 12hr
600 mg PO Q12 10 Days Qty: 20 0RF
budesonide 0.5 mg/2 mL Suspension For Nebulization
0.5 mg inhalation R BID 30 Days Qty: 120 0RF
amoxicillin-pot clavulanate 875-125 mg tablet
1 tab PO BID 9 Days Qty: 18 0RF
prednisone 10 mg Tablet
See Rx Instructions .ROUTE .COMPLEX Qty: 30 0RF
Rx Instructions:
Take By Mouth:
40 mg daily x3 days, 30 mg daily x3 days,
20 mg daily x3 days, 10 mg daily x3 days.
ipratropium-albuterol 0.5 mg-3 mg(2.5 mg base)/3 mL Solution For Nebulization
3 ml inhalation R QID 30 Days Qty: 360 0RF
Continued
fluticasone propion-salmeterol 250-50 mcg/dose blister with device
1 inh INHALATION R BID
ascorbic acid (vitamin C) [Vitamin C] 1,000 mg Tablet
2 g PO DAILY
atorvastatin 20 mg Tablet
20 mg PO HS
calcium carbonate [Calcium 600] 600 mg calcium (1,500 mg) Tablet
600 mg PO DAILY
ferrous sulfate 325 mg (65 mg iron) Tablet
650 mg PO DAILY
bismuth subsalicylate [Pepto-Bismol] 262 mg/15 mL Suspension
524 mg PO DAILYPRN PRN (Reason: upset stomach)
albuterol sulfate 90 mcg/actuation HFA aerosol inhaler
1 puff INHALATION R DAILYPRN PRN (Reason: sob)
cholecalciferol (vitamin D3) 50 mcg (2,000 unit) Tablet
50 mcg PO DAILY
omega 0-rcc-dzu-fish oil [Fish Oil] 1,200 (144-216) mg Capsule
1 cap PO DAILY
ibuprofen 200 mg Tablet
400 mg PO DAILYPRN PRN (Reason: mild pain) Qty: 0 0RF
magnesium 200 mg Tablet
400 mg PO DAILY
Discontinued
furosemide 20 mg Tablet
40 mg PO DAILY
Discharge Orders:
Discharge Patient (As Directed); Ordered 08/13/24
Ordered By: Kar Peralta
Discharge Date and Time
Print Language: HONG KONGER

Documented by User: Vasu Javed MD 08/13/24 13:47
Discharge Summary
Discharge Data
Date of Admission: 08/09/24
Date of Discharge: 08/13/24
Discharge Plan
-
Patient Disposition: Home (Routine Discharge)
Discharge Diagnosis/Procedures: Recurrent pleural effusions right lower lung s/p thoracocentesis unclear etiology ;acute exacerbation of possible asthma; Acute haemophilus influenzae upper respiratory infection
Condition: Fair
Diet: Regular
Activity: As tolerated
Driving Restrictions: As prior to admission
Bathing Restrictions: OK to Shower
Referrals:
Olayinka Washington MD [Active] - in two to four weeks
(pt has pulmonary appt with Dr. Chacon 09/03 with PFT
consider PET scan, possible bronchoscopy, possible pleuroscopy with pleural bx)
Abimbola Wright NP [Family Provider] - in less than 1 week
Prescriptions:
New
furosemide 40 mg Tablet
40 mg PO DAILY 30 Days Qty: 30 1RF
guaifenesin 600 mg Tablet Extended Release 12hr
600 mg PO Q12 10 Days Qty: 20 0RF
budesonide 0.5 mg/2 mL Suspension For Nebulization
0.5 mg inhalation R BID 30 Days Qty: 120 0RF
amoxicillin-pot clavulanate 875-125 mg tablet
1 tab PO BID 9 Days Qty: 18 0RF
prednisone 10 mg Tablet
See Rx Instructions .ROUTE .COMPLEX Qty: 30 0RF
Rx Instructions:
Take By Mouth:
40 mg daily x3 days, 30 mg daily x3 days,
20 mg daily x3 days, 10 mg daily x3 days.
ipratropium-albuterol 0.5 mg-3 mg(2.5 mg base)/3 mL Solution For Nebulization
3 ml inhalation R QID 30 Days Qty: 360 0RF
Continued
fluticasone propion-salmeterol 250-50 mcg/dose blister with device
1 inh INHALATION R BID
ascorbic acid (vitamin C) [Vitamin C] 1,000 mg Tablet
2 g PO DAILY
atorvastatin 20 mg Tablet
20 mg PO HS
calcium carbonate [Calcium 600] 600 mg calcium (1,500 mg) Tablet
600 mg PO DAILY
ferrous sulfate 325 mg (65 mg iron) Tablet
650 mg PO DAILY
bismuth subsalicylate [Pepto-Bismol] 262 mg/15 mL Suspension
524 mg PO DAILYPRN PRN (Reason: upset stomach)
albuterol sulfate 90 mcg/actuation HFA aerosol inhaler
1 puff INHALATION R DAILYPRN PRN (Reason: sob)
cholecalciferol (vitamin D3) 50 mcg (2,000 unit) Tablet
50 mcg PO DAILY
omega 5-hgr-avn-fish oil [Fish Oil] 1,200 (144-216) mg Capsule
1 cap PO DAILY
ibuprofen 200 mg Tablet
400 mg PO DAILYPRN PRN (Reason: mild pain) Qty: 0 0RF
magnesium 200 mg Tablet
400 mg PO DAILY
Discontinued
furosemide 20 mg Tablet
40 mg PO DAILY
Discharge Orders:
Discharge Patient (As Directed); Ordered 08/13/24
Ordered By: Kar Peralta
Discharge Date and Time
Print Language: [place]
[2024-08-13 15:47] VITALS: BP 126/75
[2024-08-13 18:07] LABS: IgE 8 kU/L (<=214)
== END 2024-08-13 16:42 | disposition home or self-care (01) | DRG 186 ==
LOC: 4 WEST ACU 01:36
PROVIDERS: Radiology Vascular & Interventional Radiology; Student in an Organized Health Care Education/Training Program; ADMITTING PHYSICIAN Internal Medicine; ATTENDING PHYSICIAN Internal Medicine; CONSULT PHYSICIAN Thoracic Surgery (Cardiothoracic Vascular Surgery); EMERGENCY PHYSICIAN Student in an Organized Health Care Education/Training Program; FAMILY PHYSICIAN Nurse Practitioner Adult Health; OTHER PHYSICIAN Internal Medicine
PROC: 0W993ZZ Drainage of Right Pleural Cavity, Percutaneous Approach (ICD-10-PCS; 2024-08-09)
DX: J90 Pleural effusion, not elsewhere classified (principal); J96.01 Acute respiratory failure with hypoxia; J44.1 Chronic obstructive pulmonary disease with (acute) exacerbation; J45.901 Unspecified asthma with (acute) exacerbation; I31.39 Other pericardial effusion (noninflammatory); Z11.52 Encounter for screening for COVID-19; Z87.01 Personal history of pneumonia (recurrent); G47.00 Insomnia, unspecified; E78.5 Hyperlipidemia, unspecified; E11.9 Type 2 diabetes mellitus without complications; B30.9 Viral conjunctivitis, unspecified; J43.9 Emphysema, unspecified; F14.11 Cocaine abuse, in remission; I25.10 Atherosclerotic heart disease of native coronary artery without angina pectoris; Z83.0 Family history of human immunodeficiency virus [HIV] disease; Z82.49 Family history of ischemic heart disease and other diseases of the circulatory system; Z79.899 Other long term (current) drug therapy; F40.240 Claustrophobia; E87.6 Hypokalemia; I10 Essential (primary) hypertension; Z79.51 Long term (current) use of inhaled steroids; Z83.3 Family history of diabetes mellitus
CPT/HCPCS: 32555; 71045; 71046; 71250; 80048; 80053; 82785; 82945; 83605; 83615; 83735; 83880; 83986; 84145; 84155; 84157; 84443; 84478; 84484; 85025; 85027; 85610; 85652; 85730; 86140; 87015; 87040; 87070; 87077; 87185; 87205; 87502; 87811; 89051; 93005; 93306; 93971; 94640; 99285

== ENCOUNTER 2024-09-13 06:10 | Day surgery (SDC) | payer OTHER, SELFPAY ==
[2024-09-10 11:24] LABS: Hematocrit 47.9 % (39.0-52.0); Hemoglobin 16.2 g/dL (13.0-18.0); Mean Corp Hgb Conc. 33.8 g/dL (33.0-37.0); Mean Corpuscular Hgb 31.8 pg (27.0-31.0); Mean Corpuscular Volume 93.9 fL (80.0-94.0); Mean Platelet Volume 10.8 fL (7.4-10.4); Platelet Count 289 10^3/uL (130-400); Red Cell Dist. Width 12.4 % (11.5-14.5); White Blood Cell Count 6.3 10^3/uL (4.8-10.8)
[2024-09-10 11:35] LABS: INR 1.02; PT 13.7 Sec (11.4-14.6)
[2024-09-10 11:36] LABS: APTT 30.3 Sec (23.4-35.0)
[2024-09-10 12:29] LABS: Blood Urea Nitrogen 12 mg/dl (9-20); Calcium 8.8 mg/dl (8.4-10.2); Carbon Dioxide 30 mmol/L (22-30); Chloride 108 mmol/L (98-107); Glucose 86 mg/dl (70-99); Potassium 4.2 mmol/L (3.5-5.1); Sodium 142 mmol/L (135-145); eGFR > 60.00
[2024-09-10 13:39] VITALS: BMI 29.5
[2024-09-13] VITALS (13 sets, daily range): BP systolic 108–133; BP diastolic 65–85; BMI 27.9
[2024-09-13] MEDS: VENTOLIN NEBULES 2.5 MG INH ×2 (07:09→09:34)
[2024-09-13] MEDS: NSS 500 IV (07:24)
== END 2024-09-13 11:44 | disposition home or self-care (01) ==
LOC: SDS 06:10
PROVIDERS: ATTENDING PHYSICIAN Internal Medicine; FAMILY PHYSICIAN Family Medicine
DX: R91.1 Solitary pulmonary nodule (principal); R91.8 Other nonspecific abnormal finding of lung field; J42 Unspecified chronic bronchitis
CPT/HCPCS: 31629; 31627; 31654; 31624; 31623; 31645; 31628; 31633; 88173; 88305; 36415; 71045; 76000; 80048; 85027; 85610; 85730; 87015; 87070; 87077; 87102; 87116; 87205; 88112; 94640; C1887